=== PATIENT | male | born 1970 | race African-American/Black ===

== ENCOUNTER 2018-07-20 17:59 | Inpatient (IN) | payer OTHER ==
[~2018-07-20] VITALS: Ht 175.3 cm; Wt 101.6 kg
[2018-07-20] MEDS ORDERED: NKM (18:08)
--- NOTE | 2018-07-20 18:39 | Emergency Room Report ---
History of Present Illness General Chief Complaint: Upper Respiratory Illness Source: Patient Present Illness HPI Patient has history of diabetes. Patient states that he has had a cough for last 3-4 days. He has been taking cough medicine from his friend without much improvement. This morning he noticed that his legs were swollen. He has orthopnea and dyspnea on exertion. Denies any chest pain. Denies any fever nausea vomiting diarrhea chills. Symptoms noted to be severe.No other modifying factors. No other associated signs and symptoms. No other complaints were noted. No prior episode. No history of CHF or pulmonary embolism. Allergies: Coded Allergies: No Known Allergies (Unverified , 07/20/18) Patient History Past Medical History: DM, HTN Past Surgical History: none Pertinent Family History: none Social History: Denies: smoking, alcohol use, drug use Reviewed Nursing Documentation: PMH: Agreed; PSxH: Agreed Nursing Documentation-PMH Past Medical History: No History, Except For Hx Hypertension: Yes Hx Diabetes: Yes Review of Systems All Other Systems: negative except mentioned in HPI Physical Exam Vital Signs Date Time Temp Pulse Resp B/P (MAP) Pulse Ox O2 Delivery O2 Flow Rate FiO2 07/20/18 18:03 99.5 118 26 151/101 87 Room Air 99.5 Sp02 EP Interpretation: reviewed, abnormal - low General Appearance: alert, moderate distress Head: normocephalic, atraumatic Eyes: bilateral eye normal inspection ENT: hearing grossly normal, normal voice, pharyngeal erythema Neck: normal inspection, full range of motion, supple, no bony tend Respiratory: normal inspection, lungs clear, normal breath sounds, no wheezing , other - Slight incre resp rate Cardiovascular #1: no edema, tachycardia Gastrointestinal: normal inspection, normal bowel sounds, non tender, soft, no guarding, no hernia Genitourinary: no CVA tenderness Musculoskeletal: back normal, normal range of motion, swelling - bilateral lower extremity Neurologic: normal inspection, alert, responsive, speech normal Psychiatric: normal inspection, judgement/insight normal, anxious Skin: normal inspection, normal color, no rash Procedures Critical Care Time Critical Care Time Patient had a critical medical condition which untreated could potentially result in life or limb threatening injury. Total critical care time excluding procedures was approximately 45 minutes. Medical Decision Making Diagnostic Impression: Primary Impression: CHF (congestive heart failure) Additional Impression: Respiratory distress ER Course Patient presents emergency department today complaining of shortness of breath. Differential diagnoses include acute pneumonia, CHF, acute coronary syndrome, pneumothorax, asthma, COPD flare, just to name a few.Given the severity of the patient's presentation I felt this is a highly complex patient. This patient required extensive workup. Patient laboratory workup shows evidence of CHF with elevated BNP. Chest x-ray shows pulmonary edema. Patient appears be satting okay on oxygen. We'll administer Lasix and nitroglycerin. Patient will be admitted to the [facility] for further treatment. Case was discussed with Dr. Espinosa and Dr. Underwood for admission. Labs Test 07/20/18 18:30 07/20/18 19:15 07/20/18 19:30 White Blood Count 11.8 K/UL (4.8-10.8) Red Blood Count 4.22 M/UL (4.70-6.10) Hemoglobin 13.0 G/DL (14.2-18.0) Hematocrit 37.6 % (42.0-52.0) Mean Corpuscular Volume 89 FL (80-99) Mean Corpuscular Hemoglobin 30.8 PG (27.0-31.0) Mean Corpuscular Hemoglobin Concent 34.7 G/DL (32.0-36.0) Red Cell Distribution Width 10.8 % (11.6-14.8) Platelet Count 299 K/UL (150-450) Mean Platelet Volume 6.9 FL (6.5-10.1) Neutrophils (%) (Auto) 69.3 % (45.0-75.0) Lymphocytes (%) (Auto) 15.3 % (20.0-45.0) Monocytes (%) (Auto) 13.4 % (1.0-10.0) Eosinophils (%) (Auto) 0.6 % (0.0-3.0) Basophils (%) (Auto) 1.4 % (0.0-2.0) Sodium Level 131 MMOL/L (136-145) Potassium Level 4.2 MMOL/L (3.5-5.1) Chloride Level 95 MMOL/L (98-107) Carbon Dioxide Level 27 MMOL/L (21-32) Anion Gap 9 mmol/L (5-15) Blood Urea Nitrogen 16 mg/dL (7-18) Creatinine 1.2 MG/DL (0.55-1.30) Estimat Glomerular Filtration Rate > 60 mL/min (>60) Glucose Level 313 MG/DL (74-106) Calcium Level 9.1 MG/DL (8.5-10.1) Total Bilirubin 0.6 MG/DL (0.2-1.0) Aspartate Amino Transf (AST/SGOT) 30 U/L (15-37) Alanine Aminotransferase (ALT/SGPT) 39 U/L (12-78) Alkaline Phosphatase 120 U/L (46-116) Total Creatine Kinase 626 U/L (26-308) Creatine Kinase MB 0.8 NG/ML (0.0-3.6) Creatine Kinase MB Relative Index 0.1 Troponin I 0.041 ng/mL (0.000-0.056) Pro-B-Type Natriuretic Peptide 1136 pg/mL (0-125) Total Protein 7.1 G/DL (6.4-8.2) Albumin 2.4 G/DL (3.4-5.0) Globulin 4.7 g/dL Albumin/Globulin Ratio 0.5 (1.0-2.7) Lactic Acid Level 1.30 mmol/L (0.4-2.0) Urine Color Yellow Urine Appearance Clear Urine pH 5 (4.5-8.0) Urine Specific [place] 1.015 (1.005-1.035) Urine Protein 4+ (NEGATIVE) Urine Glucose (UA) 4+ (NEGATIVE) Urine Ketones 2+ (NEGATIVE) Urine Blood 3+ (NEGATIVE) Urine Nitrite Negative (NEGATIVE) Urine Bilirubin Negative (NEGATIVE) Urine Urobilinogen 1 MG/DL (0.0-1.0) Urine Leukocyte Esterase Negative (NEGATIVE) Urine RBC 2-4 /HPF (0 - 0) Urine WBC 2-4 /HPF (0 - 0) Urine Squamous Epithelial Cells Occasional /LPF Urine Bacteria Occasional /HPF (NONE) EKG Diagnostic Results Rate: tachycardiac Rhythm: NSR ST Segments: no acute changes Rhythm Strip Diag. Results EP Interpretation: yes Rate: 112 Rhythm: NSR, no PVC's, no ectopy Chest X-Ray Diagnostic Results Chest X-Ray Diagnostic Results : Chest X-Ray Ordered: Yes # of Views/Limited/Complete: 1 View Indication: Shortness of Breath EP Interpretation: Yes Interpretation: other - Pulmonary congestion, cardiomegaly, normal bone, pulmonary edema Impression: Other - Acute CHF Electronically Signed by: Electronically signed by Reese Daniels MD Last Vital Signs Date Time Temp Pulse Resp B/P (MAP) Pulse Ox O2 Delivery O2 Flow Rate FiO2 07/20/18 18:03 99.5 118 26 151/101 87 Room Air 99.5 Status: improved Disposition: ADMITTED INPATIENT Condition: Serious Reese Daniels MD Jul 20, 2018 18:39
[2018-07-20 18:54] LABS: BASOPHILS % (AUTO) 1.4 % (0.0-2.0); EOSINOPHILS % (AUTO) 0.6 % (0.0-3.0); HEMATOCRIT 37.6 % (42.0-52.0); LYMPHOCYTES % (AUTO) 15.3 % (20.0-45.0); MEAN CORPUSCULAR VOLUME 89 FL (80-99); MONOCYTES % (AUTO) 13.4 % (1.0-10.0); NEUTROPHILS % (AUTO) 69.3 % (45.0-75.0); PLATELET COUNT 299 K/UL (150-450); RED BLOOD COUNT 4.22 M/UL (4.70-6.10); RED CELL DISTRIBUTION WIDTH 10.8 % (11.6-14.8); WHITE BLOOD COUNT 11.8 K/UL (4.8-10.8)
[2018-07-20 19:08] LABS: ANION GAP 9 mmol/L (5-15); BLOOD UREA NITROGEN 16 mg/dL (7-18); CALCIUM 9.1 MG/DL (8.5-10.1); CARBON DIOXIDE 27 MMOL/L (21-32); CHLORIDE 95 MMOL/L (98-107); CREATININE 1.2 MG/DL (0.55-1.30); POTASSIUM 4.2 MMOL/L (3.5-5.1); SODIUM 131 MMOL/L (136-145)
[2018-07-20 19:14] VITALS: BP 165/100
[2018-07-20] MEDS ORDERED: Azithromycin 500 MG in NS 275 ML IV SCH (19:15)
[2018-07-20] MEDS ORDERED: cefTRIAXone 1 GM in NS 55 ML IV SCH (19:15)
[2018-07-20 19:23] LABS: ALANINE AMINOTRANSFERASE 39 U/L (12-78); ALBUMIN 2.4 G/DL (3.4-5.0); ALBUMIN/GLOBULIN RATIO 0.5 (1.0-2.7); ALKALINE PHOSPHATASE 120 U/L (46-116); ASPARTATE AMINO TRANSFERASE 30 U/L (15-37); BILIRUBIN,TOTAL 0.6 MG/DL (0.2-1.0); CKMB 0.8 NG/ML (0.0-3.6); CREATINE KINASE 626 U/L (26-308)
[2018-07-20] MEDS ORDERED: Nitroglycerin 2% oint pkt TOPIC ONE (19:45)
[2018-07-20 19:46] LABS: APPEARANCE,URINE CLEAR; BILIRUBIN, URINE NEGATIVE (NEGATIVE); COLOR,URINE YELLOW; GLUCOSE, URINE (UA) 4+ (NEGATIVE); KETONES,URINE 2+ (NEGATIVE); LEUKOCYTE ESTERASE ,URINE NEGATIVE (NEGATIVE); NITRITE,URINE NEGATIVE (NEGATIVE); PH,URINE 5 (4.5-8.0); PROTEIN,URINE 4+ (NEGATIVE); UROBILINOGEN,URINE 1 MG/DL (0.0-1.0)
[2018-07-20 20:45] VITALS: BP 152/106
[2018-07-20 21:10] VITALS: BP 154/99
[2018-07-20] MEDS ORDERED: Albuterol/Ipratropium 3ml neb HHN PRN (21:15)
[2018-07-20] MEDS ORDERED: Miralax 17gm pkt ORAL PRN (21:15)
[2018-07-21] VITALS: BP 134/74
[2018-07-21 04:00] VITALS: BP 126/73
[2018-07-21] MEDS: NovoLOG Insulin Flexpen SUBQ SCH ×4 (06:30→21:06)
[2018-07-21 07:33] LABS: BASOPHILS % (AUTO) 0.9 % (0.0-2.0); EOSINOPHILS % (AUTO) 2.5 % (0.0-3.0); HEMATOCRIT 43.3 % (42.0-52.0); HEMOGLOBIN 14.7 G/DL (14.2-18.0); LYMPHOCYTES % (AUTO) 25.7 % (20.0-45.0); MEAN CORPUSCULAR VOLUME 88 FL (80-99); MONOCYTES % (AUTO) 13.8 % (1.0-10.0); NEUTROPHILS % (AUTO) 57.2 % (45.0-75.0); PLATELET COUNT 350 K/UL (150-450); RED BLOOD COUNT 4.92 M/UL (4.70-6.10); RED CELL DISTRIBUTION WIDTH 10.9 % (11.6-14.8); WHITE BLOOD COUNT 10.6 K/UL (4.8-10.8)
[2018-07-21 07:57] LABS: ALBUMIN 2.8 G/DL (3.4-5.0); ANION GAP 10 mmol/L (5-15); BLOOD UREA NITROGEN 15 mg/dL (7-18); CALCIUM 9.4 MG/DL (8.5-10.1); CARBON DIOXIDE 29 MMOL/L (21-32); CHLORIDE 95 MMOL/L (98-107); CREATININE 1.3 MG/DL (0.55-1.30); PHOSPHORUS 3.7 MG/DL (2.5-4.9); POTASSIUM 3.7 MMOL/L (3.5-5.1); SODIUM 134 MMOL/L (136-145)
[2018-07-21 08:00] VITALS: BP 140/70
[2018-07-21] MEDS ORDERED: Heparin 5000 units/ml inj SUBQ SCH (09:00)
[2018-07-21] MEDS ORDERED: Isovue-300 100ml vial INJ PRN (10:15)
--- NOTE | 2018-07-21 10:18 | Diagnostic Imaging Report ---
Indication: Cough Comparison: None A single view chest radiograph was obtained. Findings: Extensive bilateral airspace opacities demonstrated. Lung volumes are low. Heart size is normal. Pulmonary vascularity is normal. Bones are unremarkable IMPRESSION: Bilateral, extensive airspace opacities. Consider noncardiogenic pulmonary edema versus inflammatory/infectious infiltrates.
--- NOTE | 2018-07-21 10:20 | Diagnostic Imaging Report ---
Indication: Dyspnea Comparison: 07/20/2018 A single view chest radiograph was obtained. Findings: There is no significant change with extensive airspace opacities within both lungs. Pulmonary vascularity is probably normal. Heart size is mildly increased compared to the prior examination but lung volumes remain low. IMPRESSION: Bilateral infiltrates versus non-cardiogenic edema. No change
--- NOTE | 2018-07-21 11:29 | Diagnostic Imaging Report ---
Indication: 47-year-old male presenting with cough 3-4 days without improvement. History of diabetes. Technique: Continuous helical transaxial imaging of the chest was obtained from the thoracic inlet to the upper abdomen after intravenous nonionic contrast administration. Coronal 2-D reformats were also obtained. Automatic Exposure Control was utilized. Total Dose length Product (DLP): 1153.[address] Dose Index Volume (CTDIvol): 27.17 mGy Comparison: none Findings: Central, airspace opacities demonstrated throughout both lung rendon involving upper and lower lobes. These are areas of consolidative lung characterized by air bronchograms and ill-defined groundglass opacities. The degree of disease is moderate to extensive with relative sparing of the lung periphery. Findings are seen in the setting of normal heart size and configuration. Small bilateral pleural effusions are present. No adenopathy appreciated. The esophagus is mildly patulous and slightly dilated. Minimal calcification of aorta demonstrated. There is a mild amount of subcutaneous reticulation within the chest wall. IMPRESSION: Bilateral, central airspace consolidation moderate to severe in degree. Normal heart size. Findings suggestive of acute pulmonary edema. Favor noncardiogenic causes, the differential diagnosis of which is large including neurogenic edema, allergy, drug toxicity, acute asthma, etc. Clinical workup is needed. The CT scanner at [facility] is accredited by the [employer] and the scans are performed using dose optimization techniques as appropriate to a performed exam including Automatic Exposure control.
[2018-07-21 12:00] VITALS: BP 151/100
[2018-07-21] MEDS ORDERED: Promethazine/Codeine 5ml UD ORAL PRN (13:37)
[2018-07-21] MEDS ORDERED: PPD Tuberculin Skin Test 5TU IDERMAL ONE (14:00)
[2018-07-21] MEDS ORDERED: Isovue-300 100ml vial INJ ONE (14:15)
[2018-07-21] MEDS ORDERED: Miralax 17gm pkt ORAL PRN (14:45)
[2018-07-21 16:00] VITALS: BP 129/88
[2018-07-21] MEDS ORDERED: Solu-MEDROL 40mg Inj IVP SCH (18:00)
[2018-07-21] MEDS: Albuterol/Ipratropium 3ml neb HHN PRN (18:54)
[2018-07-21] MEDS: Solu-MEDROL 40mg Inj IVP SCH (19:29)
[2018-07-21 20:00] VITALS: BP 129/85
[2018-07-21] MEDS ORDERED: Azithromycin 500 MG in NS 275 ML IV SCH (20:00)
[2018-07-21] MEDS ORDERED: cefTRIAXone 1 GM in NS 55 ML IV SCH (20:00)
--- NOTE | 2018-07-21 20:18 | History & Physical ---
History and Physical History & Physicial Dictated for Int Med-Dr Espinosa no. [id number]. Wisam Puga MD Jul 21, 2018 20:18
[2018-07-21] MEDS: Promethazine/Codeine 5ml UD ORAL PRN (20:38)
[2018-07-21] MEDS: Heparin 5000 units/ml inj SUBQ SCH (20:47)
[2018-07-21] MEDS: Azithromycin 500 MG in NS 275 ML IV SCH (21:01)
[2018-07-21] MEDS: cefTRIAXone 1 GM in NS 55 ML IV SCH (22:34)
[2018-07-22] VITALS: BP 148/97
[2018-07-22] MEDS: Solu-MEDROL 40mg Inj IVP SCH ×4 (00:01→16:48)
--- NOTE | 2018-07-22 01:15 | History and Physical Report ---
DATE OF ADMISSION: 07/20/2018 CHIEF COMPLAINT: The patient is a 47-year-old -Russian male, presents with complaint of bilateral feet swelling and shortness of breath. HISTORY OF PRESENT ILLNESS: The patient states he had a cold approximately five days ago. The patient had fevers and chills. The patient has had a cough, which is productive of a "orange" sputum. The patient noticed that his feet were swelling yesterday, 07/20/2018. The patient presented to [facility] emergency room. The patient was found to have bilateral opacities in the lungs. The patient is admitted for pneumonia versus acute congestive heart failure. PAST MEDICAL HISTORY: Significant for: 1. Diabetes, type 2. 2. Hypertension. PAST SURGICAL HISTORY: Significant for appendectomy. CURRENT MEDICATIONS: The patient states he is not taking any medications in the past three years. ALLERGIES: No known drug allergies. 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 The patient denies tobacco or alcohol use. REVIEW OF SYSTEMS: CONSTITUTIONAL: The patient denies weight loss or weight gain. The patient denies fevers or chills. HEENT: The patient denies ear or throat pain. The patient denies headache. CARDIOVASCULAR: The patient denies palpitations or chest pain. CHEST: The patient complains of cough as above. The patient denies wheezing. ABDOMEN: The patient denies nausea, vomiting, diarrhea, or constipation. GENITOURINARY: The patient denies dysuria or increased frequency of urination. NEUROMUSCULAR: The patient denies seizures or generalized weakness. The patient complains of bilateral feet swelling as above. PHYSICAL EXAMINATION: VITAL SIGNS: Temperature 98.1, respirations 18, pulse 105, and blood pressure 165/100. GENERAL: The patient is a well-developed and well-nourished -Russian male, in no apparent distress. HEENT: Eyes, pupils are equal and responsive to light and accommodation. Extraocular movements are intact. NECK: Supple without lymphadenopathy. CHEST: Lungs are clear. There are diffuse wheezes in bilateral lung rendon with crackles at bilateral bases. Otherwise, clear to auscultation without wheezes or rales. CARDIOVASCULAR: Regular rhythm and rate. S1 and S2 are normal without murmurs, rubs, or gallops. ABDOMEN: Soft, nontender, and nondistended. Positive bowel sounds. No hepatosplenomegaly. Currently, no rebound or guarding noted. EXTREMITIES: Negative for clubbing, cyanosis, or edema. RECTAL: Refused. GENITAL: Refused. NEUROLOGIC: Cranial nerves II through XII are grossly intact without focal deficits. Motor strength is 5/5 bilaterally. Deep tendon reflexes are 2+ plantar. LABORATORY STUDIES: WBC 11.8, hemoglobin 13.3, hematocrit 37.6, and platelets 209,000. Sodium 131, potassium 4.2, chloride 195, CO2 27, BUN 16, creatinine 1.2, and glucose 313. Chest x-ray revealed bilateral extensive airspace opacities consistent with pulmonary edema. A CT scan of the chest revealed central airspace consolidation with moderate to severe degree. This is consistent with acute pulmonary edema. "Fever noncardiogenic causes." ASSESSMENT: This is a 47-year-old -Russian male. 1. Bilateral pneumonia. 2. Acute pulmonary edema. 3. Diabetes, type 2. 4. Hypertension. TREATMENT: 1. Bilateral pneumonia/acute pulmonary edema. Pulmonary consultation with Dr. Pamela Underwood. The patient has been started empirically on ceftriaxone and azithromycin. We will follow recommendations of Pulmonary. 2. Diabetes, type 2. The patient has been started on NovoLog sliding scale. 3. Hypertension. The patient is currently receiving clonidine p.r.n. for hypertension. Wisam Puga M.D. DR: DELORES JOB#: [id number] CC:
[2018-07-22 04:00] VITALS: BP 120/64
[2018-07-22] MEDS: NovoLOG Insulin Flexpen SUBQ SCH ×6 (06:33→21:09)
[2018-07-22 08:00] VITALS: BP 121/77
[2018-07-22 09:02] LABS: BASOPHILS % (AUTO) 0.3 % (0.0-2.0); HEMATOCRIT 39.7 % (42.0-52.0); HEMOGLOBIN 13.2 G/DL (14.2-18.0); MEAN CORPUSCULAR VOLUME 87 FL (80-99); NEUTROPHILS % (AUTO) 83.7 % (45.0-75.0); PLATELET COUNT 396 K/UL (150-450); RED BLOOD COUNT 4.56 M/UL (4.70-6.10); WHITE BLOOD COUNT 8.4 K/UL (4.8-10.8)
[2018-07-22 09:08] LABS: ANION GAP 7 mmol/L (5-15); BLOOD UREA NITROGEN 21 mg/dL (7-18); CALCIUM 9.1 MG/DL (8.5-10.1); CARBON DIOXIDE 28 MMOL/L (21-32); CHLORIDE 98 MMOL/L (98-107); CREATININE 1.2 MG/DL (0.55-1.30); POTASSIUM 4.7 MMOL/L (3.5-5.1); SODIUM 133 MMOL/L (136-145)
[2018-07-22] MEDS: Heparin 5000 units/ml inj SUBQ SCH ×2 (09:31→21:08)
--- NOTE | 2018-07-22 11:15 | Consultation ---
History of Present Illness General Date patient seen: Jul 21, 2018 Chief Complaint: Upper Respiratory Illness Present Illness HPI 47 year old male with history of diabetes presented to ER with CC of cough for last 3-4 days. He traveled recently to [facility], where he went hiking with his friends. One of his coworkers has had the same symptoms as well. His CXR showed extensive patchy infiltrate whis was misread by ER physician as pulmonary edema and he received some dose of Lasix. He was admitted to [facility] with presumptive Dx of CHF. Denies any chest pain. Denies any fever nausea vomiting diarrhea chills. Allergies: Coded Allergies: No Known Allergies (Unverified , 07/20/18) Medication History Scheduled No Known Medications* (NKM - No Known Medications*), 0 ., (Reported) Patient History Healthcare decision maker N Resuscitation status Full Code Advanced Directive on File Review of Systems Respiratory: Reports: cough, shortness of breath Physical Exam General Appearance: WD/WN Lines, tubes and drains: peripheral HEENT: normocephalic Neck: non-tender Respiratory/Chest: chest wall non-tender, lungs clear Breasts: no masses Cardiovascular/Chest: normal rate Abdomen: normal bowel sounds Last 24 Hour Vital Signs Date Time Temp Pulse Resp B/P (MAP) Pulse Ox O2 Delivery O2 Flow Rate FiO2 07/22/18 09:00 Nasal Cannula 2.0 07/22/18 08:00 97.4 86 18 121/77 (92) 98 97.4 07/22/18 04:00 91 07/22/18 04:00 97.5 86 23 120/64 (82) 98 97.5 07/22/18 00:00 97.9 85 20 148/97 (114) 90 97.9 07/22/18 00:00 86 07/21/18 21:00 Nasal Cannula 2.0 07/21/18 20:43 105 07/21/18 20:00 97.0 89 20 129/85 (100) 100 97.0 07/21/18 19:06 115 18 96 Venturi Mask 10.0 45 07/21/18 19:00 113 18 Venturi Mask 10.0 45 07/21/18 19:00 Venturi Mask 10.0 45 07/21/18 19:00 94 Venturi Mask 10.0 45 07/21/18 18:59 113 18 94 Venturi Mask 10.0 45 07/21/18 16:00 96.4 102 21 129/88 (102) 94 96.4 07/21/18 16:00 Nasal Cannula 2.0 07/21/18 12:00 Nasal Cannula 2.0 07/21/18 12:00 98.2 103 22 151/100 (117) 95 98.2 07/21/18 12:00 45 07/21/18 12:00 100 Intake and Output 07/21/18 07/22/18 19:00 07:00 Intake Total 1630 ml 570 ml Output Total 1300 ml 500 ml Balance 330 ml 70 ml Intake Oral 1630 ml 240 ml IV Total 330 ml Output Urine Total 1300 ml 500 ml # Voids 1 4 # Bowel Movements 2 2 Laboratory Tests Test 07/22/18 07:50 07/22/18 10:25 White Blood Count 8.4 K/UL (4.8-10.8) Red Blood Count 4.56 M/UL (4.70-6.10) L Hemoglobin 13.2 G/DL (14.2-18.0) L Hematocrit 39.7 % (42.0-52.0) L Mean Corpuscular Volume 87 FL (80-99) Mean Corpuscular Hemoglobin 29.0 PG (27.0-31.0) Mean Corpuscular Hemoglobin Concent 33.3 G/DL (32.0-36.0) Red Cell Distribution Width 11.0 % (11.6-14.8) L Platelet Count 396 K/UL (150-450) Mean Platelet Volume 6.7 FL (6.5-10.1) Neutrophils (%) (Auto) 83.7 % (45.0-75.0) H Lymphocytes (%) (Auto) 12.0 % (20.0-45.0) L Monocytes (%) (Auto) 4.0 % (1.0-10.0) Eosinophils (%) (Auto) 0.0 % (0.0-3.0) Basophils (%) (Auto) 0.3 % (0.0-2.0) Sodium Level 133 MMOL/L (136-145) L Potassium Level 4.7 MMOL/L (3.5-5.1) Chloride Level 98 MMOL/L (98-107) Carbon Dioxide Level 28 MMOL/L (21-32) Anion Gap 7 mmol/L (5-15) Blood Urea Nitrogen 21 mg/dL (7-18) H Creatinine 1.2 MG/DL (0.55-1.30) Estimat Glomerular Filtration Rate > 60 mL/min (>60) Glucose Level 336 MG/DL (74-106) H Calcium Level 9.1 MG/DL (8.5-10.1) Carcinoembryonic Antigen Pending Blastomyces Ab Immunodiffusion Pending Histoplasma Mycelial Antibody Pending Histoplasma Antibody w Mycelial Ag Pending Histoplasma Antibody with Yeast Ag Pending TB Test (T-Spot) Pending TB Test Nil Control (T-Spot) Pending TB Test Panel A (T-Spot) Pending TB Test Panel B (T-Spot) Pending TB Test Positive Control (T-Spot) Pending Height (Feet): 5 Height (Inches): 9.00 Weight (Pounds): 237 Medications Current Medications Medications (Trade) Dose Ordered Sig/Josephine Route PRN Reason Start Time Stop Time Status Last Admin Dose Admin Acetaminophen (Tylenol) 650 mg Q4H PRN ORAL Fever/Headache/Mild Pain 07/21/18 19:00 08/19/18 18:59 07/21/18 19:31 Albuterol/ Ipratropium (Albuterol/ Ipratropium) 3 ml Q4H PRN HHN Shortness of Breath 07/21/18 14:45 07/25/18 14:44 07/21/18 18:54 Azithromycin 500 mg/Sodium Chloride 275 ml @ 275 mls/hr Q24H IV 07/21/18 20:00 07/28/18 19:59 07/21/18 21:01 Ceftriaxone Sodium 1 gm/ Sodium Chloride 55 ml @ 110 mls/hr QHS IV 07/21/18 21:00 07/28/18 20:59 07/21/18 22:34 Dextrose (Dextrose 50%) 25 ml Q30M PRN IV Hypoglycemia 07/21/18 14:45 08/19/18 22:44 Dextrose (Dextrose 50%) 50 ml Q30M PRN IV Hypoglycemia 07/21/18 14:45 08/19/18 22:44 Heparin Sodium (Porcine) (Heparin 5000 units/ml) 5,000 units EVERY 12 HOURS SUBQ 07/21/18 21:00 08/20/18 08:59 07/22/18 09:31 Insulin Aspart (NovoLOG) BEFORE MEALS AND HS SUBQ 07/21/18 16:30 08/20/18 06:29 07/22/18 06:33 Methylprednisolone Sodium Succinate (Solu-MEDROL) 60 mg EVERY 6 HOURS IVP 07/21/18 18:00 08/20/18 17:59 07/22/18 06:23 Ondansetron HCl (Zofran) 4 mg Q6H PRN IVP Nausea & Vomiting 07/21/18 15:15 08/19/18 21:14 Polyethylene Glycol (Miralax) 17 gm DAILYPRN PRN ORAL Constipation 07/21/18 14:45 08/19/18 14:44 Promethazine HCl/ Codeine (Phenergan with Codeine) 5 ml Q4H PRN ORAL For Cough 07/21/18 14:45 08/20/18 14:44 07/21/18 20:38 Temazepam (Restoril) 15 mg HSPRN PRN ORAL Insomnia 07/21/18 20:00 07/27/18 19:59 Assessment/Plan Problem List: (1) Bilateral pneumonia ICD Codes: J18.9 - Pneumonia, unspecified organism SNOMED: 203210605 (2) Respiratory distress ICD Codes: R06.03 - Acute respiratory distress SNOMED: 270931050 Assessment/Plan pt has extensive lung disease, mostly seems acute. will get sputum induction for [employer] and fungal, and serology as well ( chlamydia, etc) respiratory treatment Zitromax to cover atypical organism ID to see HIV testing if pts symptoms doesn't improve with abx he will need FOB and later OLB. Pamela Underwood MD Jul 22, 2018 11:15
--- NOTE | 2018-07-22 11:17 | Pulmonology Progress Note ---
Assessment/Plan Problems: (1) Bilateral pneumonia (2) Respiratory distress Assessment/Plan no change in symptoms awaiting sputum results continue Zithromx for atypical pneumonia PPD skin testing Subjective ROS Limited/Unobtainable: No Constitutional: Reports: no symptoms HEENT: Repors: other Allergies: Coded Allergies: No Known Allergies (Unverified , 07/20/18) Objective Last 24 Hour Vital Signs Date Time Temp Pulse Resp B/P (MAP) Pulse Ox O2 Delivery O2 Flow Rate FiO2 07/22/18 09:00 Nasal Cannula 2.0 07/22/18 08:00 97.4 86 18 121/77 (92) 98 97.4 07/22/18 04:00 91 07/22/18 04:00 97.5 86 23 120/64 (82) 98 97.5 07/22/18 00:00 97.9 85 20 148/97 (114) 90 97.9 07/22/18 00:00 86 07/21/18 21:00 Nasal Cannula 2.0 07/21/18 20:43 105 07/21/18 20:00 97.0 89 20 129/85 (100) 100 97.0 07/21/18 19:06 115 18 96 Venturi Mask 10.0 45 07/21/18 19:00 113 18 Venturi Mask 10.0 45 07/21/18 19:00 Venturi Mask 10.0 45 07/21/18 19:00 94 Venturi Mask 10.0 45 07/21/18 18:59 113 18 94 Venturi Mask 10.0 45 07/21/18 16:00 96.4 102 21 129/88 (102) 94 96.4 07/21/18 16:00 Nasal Cannula 2.0 07/21/18 12:00 Nasal Cannula 2.0 07/21/18 12:00 98.2 103 22 151/100 (117) 95 98.2 07/21/18 12:00 45 07/21/18 12:00 100 Intake and Output 07/21/18 07/22/18 19:00 07:00 Intake Total 1630 ml 570 ml Output Total 1300 ml 500 ml Balance 330 ml 70 ml Intake Oral 1630 ml 240 ml IV Total 330 ml Output Urine Total 1300 ml 500 ml # Voids 1 4 # Bowel Movements 2 2 General Appearance: WD/WN HEENT: normocephalic, atraumatic Respiratory/Chest: chest wall non-tender, lungs clear Cardiovascular: normal peripheral pulses, normal rate Abdomen: normal bowel sounds, soft, non tender Skin: no rash Microbiology Date/Time Source Procedure Growth Status 07/20/18 19:25 Blood Blood Culture - Preliminary NO GROWTH AFTER 24 HOURS Resulted 07/20/18 19:15 Blood Blood Culture - Preliminary NO GROWTH AFTER 24 HOURS Resulted Laboratory Tests 07/22/18 07:50: White Blood Count 8.4, Red Blood Count 4.56L, Hemoglobin 13.2L, Hematocrit 39.7L , Mean Corpuscular Volume 87, Mean Corpuscular Hemoglobin 29.0, Mean Corpuscular Hemoglobin Concent 33.3, Red Cell Distribution Width 11.0L, Platelet Count 396, Mean Platelet Volume 6.7, Neutrophils (%) (Auto) 83.7H, Lymphocytes (%) (Auto) 12.0L, Monocytes (%) (Auto) 4.0, Eosinophils (%) (Auto) 0.0, Basophils (%) (Auto) 0.3, Sodium Level 133L, Potassium Level 4.7, Chloride Level 98, Carbon Dioxide Level 28, Anion Gap 7, Blood Urea Nitrogen 21H, Creatinine 1.2, Estimat Glomerular Filtration Rate > 60, Glucose Level 336H, Calcium Level 9.1, Carcinoembryonic Antigen [Pending], Blastomyces Ab Immunodiffusion [Pending], Histoplasma Mycelial Antibody [Pending], Histoplasma Antibody w Mycelial Ag [Pending], Histoplasma Antibody with Yeast Ag [Pending] 07/22/18 10:25: TB Test (T-Spot) [Pending], TB Test Nil Control (T-Spot) [Pending], TB Test Panel A (T-Spot) [Pending], TB Test Panel B (T-Spot) [Pending], TB Test Positive Control (T-Spot) [Pending] Current Medications Medications (Trade) Dose Ordered Sig/Josephine Route PRN Reason Start Time Stop Time Status Last Admin Dose Admin Acetaminophen (Tylenol) 650 mg Q4H PRN ORAL Fever/Headache/Mild Pain 07/21/18 19:00 08/19/18 18:59 07/21/18 19:31 Albuterol/ Ipratropium (Albuterol/ Ipratropium) 3 ml Q4H PRN HHN Shortness of Breath 07/21/18 14:45 07/25/18 14:44 07/21/18 18:54 Azithromycin 500 mg/Sodium Chloride 275 ml @ 275 mls/hr Q24H IV 07/21/18 20:00 07/28/18 19:59 07/21/18 21:01 Ceftriaxone Sodium 1 gm/ Sodium Chloride 55 ml @ 110 mls/hr QHS IV 07/21/18 21:00 07/28/18 20:59 07/21/18 22:34 Dextrose (Dextrose 50%) 25 ml Q30M PRN IV Hypoglycemia 07/21/18 14:45 08/19/18 22:44 Dextrose (Dextrose 50%) 50 ml Q30M PRN IV Hypoglycemia 07/21/18 14:45 08/19/18 22:44 Heparin Sodium (Porcine) (Heparin 5000 units/ml) 5,000 units EVERY 12 HOURS SUBQ 07/21/18 21:00 08/20/18 08:59 07/22/18 09:31 Insulin Aspart (NovoLOG) BEFORE MEALS AND HS SUBQ 07/21/18 16:30 08/20/18 06:29 07/22/18 06:33 Methylprednisolone Sodium Succinate (Solu-MEDROL) 60 mg EVERY 6 HOURS IVP 07/21/18 18:00 08/20/18 17:59 07/22/18 06:23 Ondansetron HCl (Zofran) 4 mg Q6H PRN IVP Nausea & Vomiting 07/21/18 15:15 08/19/18 21:14 Polyethylene Glycol (Miralax) 17 gm DAILYPRN PRN ORAL Constipation 07/21/18 14:45 08/19/18 14:44 Promethazine HCl/ Codeine (Phenergan with Codeine) 5 ml Q4H PRN ORAL For Cough 07/21/18 14:45 08/20/18 14:44 07/21/18 20:38 Temazepam (Restoril) 15 mg HSPRN PRN ORAL Insomnia 07/21/18 20:00 07/27/18 19:59 Pamela Underwood MD Jul 22, 2018 11:16
[2018-07-22 12:00] VITALS: BP 126/78
--- NOTE | 2018-07-22 13:47 | Consultation ---
Consult Note Consult Note ID # [id number] Jama Paul MD Jul 22, 2018 13:47
--- NOTE | 2018-07-22 15:32 | Cardiology Report ---
APPROVED REPORT EKG Measurement Heart [id number] ME [id number] [id number] Sinus tachycardia Possible Left atrial enlargement Possible septal [place], age undet Borderline ECG
--- NOTE | 2018-07-22 15:38 | Internal Med Progress Note ---
Subjective Physician Name Oliverio Espinosa Attending Physician Oliverio Espinosa MD Current Medications Medications (Trade) Dose Ordered Sig/Josephine Route PRN Reason Start Time Stop Time Status Last Admin Dose Admin Acetaminophen (Tylenol) 650 mg Q4H PRN ORAL Fever/Headache/Mild Pain 07/21/18 19:00 08/19/18 18:59 07/21/18 19:31 Albuterol/ Ipratropium (Albuterol/ Ipratropium) 3 ml Q4H PRN HHN Shortness of Breath 07/21/18 14:45 07/25/18 14:44 07/21/18 18:54 Azithromycin 500 mg/Sodium Chloride 275 ml @ 275 mls/hr Q24H IV 07/21/18 20:00 07/28/18 19:59 07/21/18 21:01 Ceftriaxone Sodium 1 gm/ Sodium Chloride 55 ml @ 110 mls/hr QHS IV 07/21/18 21:00 07/28/18 20:59 07/21/18 22:34 Dextrose (Dextrose 50%) 25 ml Q30M PRN IV Hypoglycemia 07/21/18 14:45 08/19/18 22:44 Dextrose (Dextrose 50%) 50 ml Q30M PRN IV Hypoglycemia 07/21/18 14:45 08/19/18 22:44 Heparin Sodium (Porcine) (Heparin 5000 units/ml) 5,000 units EVERY 12 HOURS SUBQ 07/21/18 21:00 08/20/18 08:59 07/22/18 09:31 Insulin Aspart (NovoLOG) BEFORE MEALS AND HS SUBQ 07/21/18 16:30 08/20/18 06:29 07/22/18 11:33 Methylprednisolone Sodium Succinate (Solu-MEDROL) 60 mg EVERY 6 HOURS IVP 07/21/18 18:00 08/20/18 17:59 07/22/18 11:12 Ondansetron HCl (Zofran) 4 mg Q6H PRN IVP Nausea & Vomiting 07/21/18 15:15 08/19/18 21:14 Polyethylene Glycol (Miralax) 17 gm DAILYPRN PRN ORAL Constipation 07/21/18 14:45 08/19/18 14:44 Promethazine HCl/ Codeine (Phenergan with Codeine) 5 ml Q4H PRN ORAL For Cough 07/21/18 14:45 11/3/18 14:44 07/21/18 20:38 Temazepam (Restoril) 15 mg HSPRN PRN ORAL Insomnia 07/21/18 20:00 07/27/18 19:59 Allergies: Coded Allergies: No Known Allergies (Unverified , 07/20/18) Subjective in respiratory isolation room, No SOB or chest pain, Less leg edema Objective Last Vital Signs Date Time Temp Pulse Resp B/P (MAP) Pulse Ox O2 Delivery O2 Flow Rate FiO2 07/22/18 12:00 98.2 82 18 126/78 (94) 95 98.2 07/22/18 09:00 Nasal Cannula 2.0 07/21/18 19:06 45 Laboratory Tests Test 07/22/18 07:50 07/22/18 10:25 White Blood Count 8.4 K/UL (4.8-10.8) Red Blood Count 4.56 M/UL (4.70-6.10) L Hemoglobin 13.2 G/DL (14.2-18.0) L Hematocrit 39.7 % (42.0-52.0) L Mean Corpuscular Volume 87 FL (80-99) Mean Corpuscular Hemoglobin 29.0 PG (27.0-31.0) Mean Corpuscular Hemoglobin Concent 33.3 G/DL (32.0-36.0) Red Cell Distribution Width 11.0 % (11.6-14.8) L Platelet Count 396 K/UL (150-450) Mean Platelet Volume 6.7 FL (6.5-10.1) Neutrophils (%) (Auto) 83.7 % (45.0-75.0) H Lymphocytes (%) (Auto) 12.0 % (20.0-45.0) L Monocytes (%) (Auto) 4.0 % (1.0-10.0) Eosinophils (%) (Auto) 0.0 % (0.0-3.0) Basophils (%) (Auto) 0.3 % (0.0-2.0) Sodium Level 133 MMOL/L (136-145) L Potassium Level 4.7 MMOL/L (3.5-5.1) Chloride Level 98 MMOL/L (98-107) Carbon Dioxide Level 28 MMOL/L (21-32) Anion Gap 7 mmol/L (5-15) Blood Urea Nitrogen 21 mg/dL (7-18) H Creatinine 1.2 MG/DL (0.55-1.30) Estimat Glomerular Filtration Rate > 60 mL/min (>60) Glucose Level 336 MG/DL (74-106) H Calcium Level 9.1 MG/DL (8.5-10.1) Carcinoembryonic Antigen Pending Blastomyces Ab Immunodiffusion Pending Histoplasma Mycelial Antibody Pending Histoplasma Antibody w Mycelial Ag Pending Histoplasma Antibody with Yeast Ag Pending TB Test (T-Spot) Pending TB Test Nil Control (T-Spot) Pending TB Test Panel A (T-Spot) Pending TB Test Panel B (T-Spot) Pending TB Test Positive Control (T-Spot) Pending Microbiology Date/Time Source Procedure Growth Status 07/20/18 19:25 Blood Blood Culture - Preliminary NO GROWTH AFTER 24 HOURS Resulted 07/20/18 19:15 Blood Blood Culture - Preliminary NO GROWTH AFTER 24 HOURS Resulted 07/21/18 13:00 Sputum AFB Specimen Processing Tissue - Final Resulted 07/21/18 13:00 Sputum Acid Fast Bacilli Smear - Final Resulted 07/21/18 13:00 Sputum Acid Fast Bacilli Culture Pending Resulted Intake and Output 07/21/18 07/22/18 19:00 07:00 Intake Total 1630 ml 570 ml Output Total 1300 ml 500 ml Balance 330 ml 70 ml Intake Oral 1630 ml 240 ml IV Total 330 ml Output Urine Total 1300 ml 500 ml # Voids 1 4 # Bowel Movements 2 2 Objective General: No acute distress, awake and alert HEENT: NCAT, sclera anicteric, PERRL, EOMI. Neck: Supple, no significant jugular venous distention, Lungs: Good inspiratory effort,clear to auscultation bilaterally, no Wheeze or Rales. Heart: Regular rate and rhythm, normal S1/S2, no murmurs. Abdomen: soft, nontender, nondistended. Normoactive bowel sounds. / Rectal: Refused and deferred. Extremities: No Cyanosis , clubbing, Trace Leg edema. Neuro: A&O x 3, Able to move all extremities Skin: warm, no rashes or lesions Psych: Normal mood and affect Assessment/Plan Assessment/Plan 1. Bilateral pneumonia. 2. Acute pulmonary edema. 3. Diabetes, type 2. 4. Hypertension. 5. Acute respiratory distress. TREATMENT: 1. Pulmonary consultation with Dr. Pamela Underwood. 2. Abx: ceftriaxone and azithromycin. 3. Monitor labs and cultures in respiratory isolation Oliverio Espinosa MD Jul 22, 2018 15:38
--- NOTE | 2018-07-22 18:00 | Consultation ---
DATE OF CONSULTATION: 07/22/2018 INFECTIOUS DISEASE CONSULTATION CONSULTING PHYSICIAN: Jama Paul M.D. REFERRING PHYSICIAN: 1. Pamela Underwood M.D. 2. Oliverio Espinosa M.D. REASON FOR CONSULTATION: Evaluation of the patient for pneumonia, antibiotic management. HISTORY OF PRESENT ILLNESS: The patient is a 47-year-old male with multiple medical problems. 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 The patient has cough x1 week. Also, the patient has some rhinorrhea and sore throat. The patient has developed cough followed with shortness of breath. His friend has had similar symptoms about a month ago and was hospitalized at one point. The patient has some productive cough that has improved. Infectious Disease consultation has been requested for further evaluation of the patient and antibiotic management as the patient's workup was suggestive of pneumonia. PAST MEDICAL HISTORY: 1. Diabetes. 2. Hypertension. SURGERIES: History of appendectomy. ALLERGIES: No known drug allergies. SOCIAL HISTORY: He smokes weed. No history of tobacco or alcohol abuse. FAMILY HISTORY: Not contributing. MEDICATIONS: The patient is on Zithromax and Rocephin. PHYSICAL EXAMINATION: VITAL SIGNS: Temperature 101.1, pulse 86, respiratory rate 18, and blood pressure 148/97. HEENT: No pale conjunctivae. No icterus. NECK: No lymphadenopathy. CHEST: Coarse breathing sounds. HEART: S1 and S2. ABDOMEN: Soft, obese, nontender. EXTREMITIES: No cyanosis at this time. NEUROLOGIC: Awake and alert. LABORATORY AND DIAGNOSTIC DATA: White blood cells 8.4, hemoglobin 13, and platelets 396,000. UA unremarkable. BUN 21 and creatinine 1.2. Alkaline phosphatase 120. AST and ALT are unremarkable. Cultures, blood culture is pending. Sputum AFB x1 negative. CT of the chest showed bilateral central airspace consolidation of [id number] degree. Leg Doppler, no evidence of DVT. ASSESSMENT: 1. Pneumonia (community-acquired versus pertussis, fungal and tuberculosis less likely). 2. Fever. 3. Diabetes. 4. Hypertension. PLAN: 1. We will continue the patient on Zithromax and Rocephin, day #2. 2. Monitor CBC. 3. Monitor BMP. 4. Monitor cultures (blood, sputum). 5. Sputum for AFB x3 was ordered. 6. Fungal serology. 7. Order coccidiomycosis, blastomycosis, and histoplasma urine antigen. 8. Cryptococcus antigen. 9. Pertussis PCR from nasopharyngeal. 10. Pertussis serology. 11. We will monitor chest x-ray. 12. We will monitor the patient's clinical course. Based on those, we will do further recommendation. Thank you, Dr. Underwood, for allowing me to participate in the care of this patient I will follow the patient with you during this hospitalization. Jama Paul M.D. DR: Opal JOB#: [id number] CC:
[2018-07-22 20:00] VITALS: BP 126/78
[2018-07-22] MEDS: cefTRIAXone 1 GM in NS 55 ML IV SCH (20:43)
[2018-07-22] MEDS: Azithromycin 500 MG in NS 275 ML IV SCH (20:43)
[2018-07-22] MEDS: Promethazine/Codeine 5ml UD ORAL PRN (21:15)
[2018-07-23] VITALS: BP 153/84
[2018-07-23 04:00] VITALS: BP 132/86
[2018-07-23] MEDS: NovoLOG Insulin Flexpen SUBQ SCH ×4 (06:29→21:33)
[2018-07-23 08:15] VITALS: BP 145/104
[2018-07-23] MEDS: Solu-MEDROL 125mg Inj IVP SCH ×3 (08:38→21:25)
[2018-07-23] MEDS: Heparin 5000 units/ml inj SUBQ SCH ×2 (08:40→21:00)
--- NOTE | 2018-07-23 11:15 | Pulmonology Progress Note ---
Assessment/Plan Problems: (1) Bilateral pneumonia (2) Respiratory distress Assessment/Plan feeling better, less cough awaiting sputum results continue Zithromx for atypical pneumonia taper steroids sputum pending HIV was negative cxr in a few days. PPD skin testing Subjective ROS Limited/Unobtainable: No Constitutional: Reports: no symptoms HEENT: Repors: no symptoms Respiratory: Reports: no symptoms Allergies: Coded Allergies: No Known Allergies (Unverified , 07/20/18) Objective Last 24 Hour Vital Signs Date Time Temp Pulse Resp B/P (MAP) Pulse Ox O2 Delivery O2 Flow Rate FiO2 07/23/18 09:25 Nasal Cannula 2.0 07/23/18 08:55 92 20 Room Air 07/23/18 08:55 98 Room Air 07/23/18 08:55 Room Air 07/23/18 08:15 97.3 84 18 145/104 (118) 95 97.3 07/23/18 04:00 97.7 82 20 132/86 (101) 98 97.7 07/23/18 00:00 97.8 80 20 153/84 (107) 99 97.8 07/22/18 21:00 Room Air 07/22/18 20:30 Room Air 07/22/18 20:30 99 Room Air 07/22/18 20:01 90 20 Room Air 07/22/18 20:00 100.4 73 21 126/78 (94) 96 100.4 07/22/18 12:00 98.2 82 18 126/78 (94) 95 98.2 07/22/18 12:00 90 Intake and Output 07/22/18 07/23/18 19:00 07:00 Intake Total 1800 ml Balance 1800 ml Intake Oral 1800 ml # Voids 8 2 # Bowel Movements 2 1 General Appearance: WD/WN HEENT: normocephalic, anicteric Respiratory/Chest: chest wall non-tender, lungs clear Cardiovascular: normal peripheral pulses, normal rate Abdomen: normal bowel sounds, soft, non tender, no organomegaly Extremities: no clubbing 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 normal Microbiology Date/Time Source Procedure Growth Status 07/20/18 19:25 Blood Blood Culture - Preliminary NO GROWTH AFTER 48 HOURS Resulted 07/20/18 19:15 Blood Blood Culture - Preliminary NO GROWTH AFTER 48 HOURS Resulted 07/21/18 13:00 Sputum AFB Specimen Processing Tissue - Final Resulted 07/21/18 13:00 Sputum Acid Fast Bacilli Smear - Final Resulted 07/21/18 13:00 Sputum Acid Fast Bacilli Culture Pending Resulted Laboratory Tests 07/22/18 21:00: Troponin I 0.017 Current Medications Medications (Trade) Dose Ordered Sig/Josephine Route PRN Reason Start Time Stop Time Status Last Admin Dose Admin Acetaminophen (Tylenol) 650 mg Q4H PRN ORAL Fever/Headache/Mild Pain 07/21/18 19:00 08/19/18 18:59 07/21/18 19:31 Albuterol/ Ipratropium (Albuterol/ Ipratropium) 3 ml Q4H PRN HHN Shortness of Breath 07/21/18 14:45 07/25/18 14:44 07/21/18 18:54 Azithromycin 500 mg/Sodium Chloride 275 ml @ 275 mls/hr Q24H IV 07/21/18 20:00 07/28/18 19:59 07/22/18 20:43 Ceftriaxone Sodium 1 gm/ Sodium Chloride 55 ml @ 110 mls/hr QHS IV 07/21/18 21:00 07/28/18 20:59 07/22/18 20:43 Dextrose (Dextrose 50%) 25 ml Q30M PRN IV Hypoglycemia 07/21/18 14:45 08/19/18 22:44 Dextrose (Dextrose 50%) 50 ml Q30M PRN IV Hypoglycemia 07/21/18 14:45 08/19/18 22:44 Heparin Sodium (Porcine) (Heparin 5000 units/ml) 5,000 units EVERY 12 HOURS SUBQ 07/21/18 21:00 08/20/18 08:59 07/23/18 08:40 Insulin Aspart (NovoLOG) BEFORE MEALS AND HS SUBQ 07/21/18 16:30 08/20/18 06:29 07/23/18 06:29 Methylprednisolone Sodium Succinate (Solu-MEDROL) 60 mg Q8H IVP 07/23/18 00:00 08/22/18 00:00 07/23/18 08:38 Ondansetron HCl (Zofran) 4 mg Q6H PRN IVP Nausea & Vomiting 07/21/18 15:15 08/19/18 21:14 Polyethylene Glycol (Miralax) 17 gm DAILYPRN PRN ORAL Constipation 07/21/18 14:45 08/19/18 14:44 Promethazine HCl/ Codeine (Phenergan with Codeine) 5 ml Q4H PRN ORAL For Cough 07/21/18 14:45 08/20/18 14:44 07/22/18 21:15 Temazepam (Restoril) 15 mg HSPRN PRN ORAL Insomnia 07/21/18 20:00 07/27/18 19:59 07/22/18 21:07 Pamela Underwood MD Jul 23, 2018 11:14
[2018-07-23 11:48] VITALS: BP 142/99
[2018-07-23] MEDS ORDERED: Tubing IV Secondary IV ONE (15:07)
[2018-07-23] MEDS ORDERED: NS 275ml ONE (15:07)
[2018-07-23 16:00] VITALS: BP 149/102
--- NOTE | 2018-07-23 17:27 | Internal Med Progress Note ---
Subjective Date of Service: Jul 23, 2018 Physician Name Wisam Puga Attending Physician Oliverio Espinosa MD Current Medications Medications (Trade) Dose Ordered Sig/Josephine Route PRN Reason Start Time Stop Time Status Last Admin Dose Admin Acetaminophen (Tylenol) 650 mg Q4H PRN ORAL Fever/Headache/Mild Pain 07/21/18 19:00 08/19/18 18:59 07/21/18 19:31 Albuterol/ Ipratropium (Albuterol/ Ipratropium) 3 ml Q4H PRN HHN Shortness of Breath 07/21/18 14:45 07/25/18 14:44 07/21/18 18:54 Azithromycin 500 mg/Sodium Chloride 275 ml @ 275 mls/hr Q24H IV 07/21/18 20:00 07/28/18 19:59 07/22/18 20:43 Ceftriaxone Sodium 1 gm/ Sodium Chloride 55 ml @ 110 mls/hr QHS IV 07/21/18 21:00 07/28/18 20:59 07/22/18 20:43 Dextrose (Dextrose 50%) 25 ml Q30M PRN IV Hypoglycemia 07/21/18 14:45 08/19/18 22:44 Dextrose (Dextrose 50%) 50 ml Q30M PRN IV Hypoglycemia 07/21/18 14:45 08/19/18 22:44 Heparin Sodium (Porcine) (Heparin 5000 units/ml) 5,000 units EVERY 12 HOURS SUBQ 07/21/18 21:00 08/20/18 08:59 07/23/18 08:40 Insulin Aspart (NovoLOG) BEFORE MEALS AND HS SUBQ 07/21/18 16:30 08/20/18 06:29 07/23/18 16:58 Methylprednisolone Sodium Succinate (Solu-MEDROL) 60 mg EVERY 12 HOURS IVP 07/23/18 21:00 08/22/18 00:00 Ondansetron HCl (Zofran) 4 mg Q6H PRN IVP Nausea & Vomiting 07/21/18 15:15 08/19/18 21:14 Polyethylene Glycol (Miralax) 17 gm DAILYPRN PRN ORAL Constipation 07/21/18 14:45 08/19/18 14:44 Promethazine HCl/ Codeine (Phenergan with Codeine) 5 ml Q4H PRN ORAL For Cough 07/21/18 14:45 08/20/18 14:44 07/22/18 21:15 Temazepam (Restoril) 15 mg HSPRN PRN ORAL Insomnia 07/21/18 20:00 07/27/18 19:59 07/22/18 21:07 Allergies: Coded Allergies: No Known Allergies (Unverified , 07/20/18) ROS Limited/Unobtainable: No Constitutional: Reports: no symptoms HEENT: Reports: no symptoms Cardiovascular: Reports: no symptoms Respiratory: Reports: shortness of breath Gastrointestinal/Abdominal: Reports: no symptoms Genitourinary: Reports: no symptoms Neurologic/Psychiatric: Reports: no symptoms Subjective 47 YO M admitted with shortness of breath. Now pneumonia. Cover for Int Med- Dr Espinosa Objective Last Vital Signs Date Time Temp Pulse Resp B/P (MAP) Pulse Ox O2 Delivery O2 Flow Rate FiO2 07/23/18 16:00 97.7 83 18 149/102 (118) 94 97.7 07/23/18 09:25 Nasal Cannula 2.0 07/22/18 08:20 28 Laboratory Tests Test 07/22/18 21:00 Troponin I 0.017 ng/mL (0.000-0.056) Microbiology Date/Time Source Procedure Growth Status 07/20/18 19:25 Blood Blood Culture - Preliminary NO GROWTH AFTER 48 HOURS Resulted 07/20/18 19:15 Blood Blood Culture - Preliminary NO GROWTH AFTER 48 HOURS Resulted 07/22/18 06:30 Sputum Gram Stain - Final Resulted 07/22/18 06:30 Sputum Sputum Culture Pending Resulted 07/21/18 13:00 Sputum AFB Specimen Processing Tissue - Final Resulted 07/21/18 13:00 Sputum Acid Fast Bacilli Smear - Final Resulted 07/21/18 13:00 Sputum Acid Fast Bacilli Culture Pending Resulted Intake and Output 07/22/18 07/23/18 19:00 07:00 Intake Total 1800 ml Balance 1800 ml Intake Oral 1800 ml # Voids 8 2 # Bowel Movements 2 1 Objective PHYSICAL EXAMINATION: GENERAL: The patient is a well-developed and well-nourished -[place] male, in no apparent distress. HEENT: Eyes, pupils are equal and responsive to light and accommodation. Extraocular movements are intact. NECK: Supple without lymphadenopathy. CHEST: Lungs are clear. There are diffuse wheezes in bilateral lung rendon with crackles at bilateral bases. Otherwise, clear to auscultation without wheezes or rales. CARDIOVASCULAR: Regular rhythm and rate. S1 and S2 are normal without murmurs, rubs, or gallops. ABDOMEN: Soft, nontender, and nondistended. Positive bowel sounds. No hepatosplenomegaly. Currently, no rebound or guarding noted. EXTREMITIES: Negative for clubbing, cyanosis, or edema. RECTAL: Refused. GENITAL: Refused. NEUROLOGIC: Cranial nerves II through XII are grossly intact without focal deficits. Motor strength is 5/5 bilaterally. Deep tendon reflexes are 2+ plantar. Assessment/Plan Problem List: (1) Pneumonia, community acquired Assessment & Plan: Continue azithromycin and ceftriaxone per ID. TB cultures pending (2) Pulmonary edema (3) Diabetes mellitus type II, uncontrolled Assessment & Plan: Continue novolog sliding scale (4) Hypertension, uncontrolled (5) Respiratory distress Assessment & Plan: Secondary to pneumonia. See pulmonary note. Status: not improved Wisam Puga MD Jul 23, 2018 17:27
[2018-07-23] MEDS: Albuterol/Ipratropium 3ml neb HHN PRN (18:41)
[2018-07-23] MEDS: Azithromycin 500 MG in NS 275 ML IV SCH (19:46)
[2018-07-23 20:00] VITALS: BP 145/98
[2018-07-23] MEDS: cefTRIAXone 1 GM in NS 55 ML IV SCH (21:25)
[2018-07-23] MEDS: Promethazine/Codeine 5ml UD ORAL PRN (21:39)
[2018-07-24] VITALS: BP 143/97
[2018-07-24 04:00] VITALS: BP 141/89
[2018-07-24] MEDS: NovoLOG Insulin Flexpen SUBQ SCH ×4 (06:51→21:52)
[2018-07-24 08:00] VITALS: BP 156/107
[2018-07-24 08:15] LABS: HEMATOCRIT 37.1 % (42.0-52.0); HEMOGLOBIN 12.7 G/DL (14.2-18.0); MEAN CORPUSCULAR VOLUME 89 FL (80-99); PLATELET COUNT 453 K/UL (150-450); RED BLOOD COUNT 4.19 M/UL (4.70-6.10); RED CELL DISTRIBUTION WIDTH 11.4 % (11.6-14.8); WHITE BLOOD COUNT 15.8 K/UL (4.8-10.8)
[2018-07-24 08:38] LABS: ANION GAP 8 mmol/L (5-15); BLOOD UREA NITROGEN 27 mg/dL (7-18); CALCIUM 8.5 MG/DL (8.5-10.1); CARBON DIOXIDE 26 MMOL/L (21-32); CHLORIDE 99 MMOL/L (98-107); CREATININE 1.2 MG/DL (0.55-1.30); POTASSIUM 4.5 MMOL/L (3.5-5.1); SODIUM 133 MMOL/L (136-145)
[2018-07-24] MEDS: Solu-MEDROL 125mg Inj IVP SCH ×2 (09:56→21:54)
[2018-07-24] MEDS: Heparin 5000 units/ml inj SUBQ SCH ×2 (09:59→21:53)
[2018-07-24] MEDS ORDERED: cloNIDine 0.2mg Tab ORAL PRN (11:15)
[2018-07-24 12:00] VITALS: BP 150/100
--- NOTE | 2018-07-24 14:51 | Internal Med Progress Note ---
Subjective Date of Service: Jul 24, 2018 Physician Name Wisam Puga Attending Physician Oliverio Espinosa MD Current Medications Medications (Trade) Dose Ordered Sig/Josephine Route PRN Reason Start Time Stop Time Status Last Admin Dose Admin Acetaminophen (Tylenol) 650 mg Q4H PRN ORAL Fever/Headache/Mild Pain 07/21/18 19:00 08/19/18 18:59 07/21/18 19:31 Albuterol/ Ipratropium (Albuterol/ Ipratropium) 3 ml Q4H PRN HHN Shortness of Breath 07/21/18 14:45 07/25/18 14:44 07/23/18 18:41 Azithromycin 500 mg/Sodium Chloride 275 ml @ 275 mls/hr Q24H IV 07/21/18 20:00 07/28/18 19:59 07/23/18 19:46 Ceftriaxone Sodium 1 gm/ Sodium Chloride 55 ml @ 110 mls/hr QHS IV 07/21/18 21:00 07/28/18 20:59 07/23/18 21:25 Clonidine HCl (Catapres tab) 0.1 mg Q4H PRN ORAL For High Blood Pressure 07/24/18 11:15 08/23/18 11:14 07/24/18 11:50 Dextrose (Dextrose 50%) 25 ml Q30M PRN IV Hypoglycemia 07/21/18 14:45 08/19/18 22:44 Dextrose (Dextrose 50%) 50 ml Q30M PRN IV Hypoglycemia 07/21/18 14:45 08/19/18 22:44 Heparin Sodium (Porcine) (Heparin 5000 units/ml) 5,000 units EVERY 12 HOURS SUBQ 07/21/18 21:00 08/20/18 08:59 07/24/18 09:59 Insulin Aspart (NovoLOG) BEFORE MEALS AND HS SUBQ 07/21/18 16:30 08/20/18 06:29 07/24/18 11:52 Methylprednisolone Sodium Succinate (Solu-MEDROL) 60 mg EVERY 12 HOURS IVP 07/23/18 21:00 08/22/18 00:00 07/24/18 09:56 Ondansetron HCl (Zofran) 4 mg Q6H PRN IVP Nausea & Vomiting 07/21/18 15:15 08/19/18 21:14 Polyethylene Glycol (Miralax) 17 gm DAILYPRN PRN ORAL Constipation 07/21/18 14:45 08/19/18 14:44 Promethazine HCl/ Codeine (Phenergan with Codeine) 5 ml Q4H PRN ORAL For Cough 07/21/18 14:45 08/20/18 14:44 07/23/18 21:39 Temazepam (Restoril) 15 mg HSPRN PRN ORAL Insomnia 07/21/18 20:00 07/27/18 19:59 07/23/18 21:39 Allergies: Coded Allergies: No Known Allergies (Unverified , 07/20/18) ROS Limited/Unobtainable: No Constitutional: Reports: no symptoms HEENT: Reports: no symptoms Cardiovascular: Reports: no symptoms Respiratory: Reports: no symptoms Gastrointestinal/Abdominal: Reports: no symptoms Genitourinary: Reports: no symptoms Neurologic/Psychiatric: Reports: no symptoms Subjective 47 YO M admitted with shortness of breath. Now pneumonia. Cover for Int Med- Dr Espinosa. Transfer to Med/Surg held due to elevated blood pressure; await echocardiogram result Objective Last Vital Signs Date Time Temp Pulse Resp B/P (MAP) Pulse Ox O2 Delivery O2 Flow Rate FiO2 07/24/18 12:00 98.2 81 20 150/100 (117) 92 98.2 07/24/18 09:00 Nasal Cannula 2.0 07/23/18 18:51 28 Laboratory Tests Test 07/24/18 06:55 White Blood Count 15.8 K/UL (4.8-10.8) H Red Blood Count 4.19 M/UL (4.70-6.10) L Hemoglobin 12.7 G/DL (14.2-18.0) L Hematocrit 37.1 % (42.0-52.0) L Mean Corpuscular Volume 89 FL (80-99) Mean Corpuscular Hemoglobin 30.3 PG (27.0-31.0) Mean Corpuscular Hemoglobin Concent 34.2 G/DL (32.0-36.0) Red Cell Distribution Width 11.4 % (11.6-14.8) L Platelet Count 453 K/UL (150-450) H Mean Platelet Volume 6.2 FL (6.5-10.1) L Neutrophils (%) (Auto) % (45.0-75.0) Lymphocytes (%) (Auto) % (20.0-45.0) Monocytes (%) (Auto) % (1.0-10.0) Eosinophils (%) (Auto) % (0.0-3.0) Basophils (%) (Auto) % (0.0-2.0) Differential Total Cells Counted 100 Neutrophils % (Manual) 83 % (45-75) H Lymphocytes % (Manual) 10 % (20-45) L Monocytes % (Manual) 7 % (1-10) Eosinophils % (Manual) 0 % (0-3) Basophils % (Manual) 0 % (0-2) Band Neutrophils 0 % (0-8) Platelet Estimate Adequate Platelet Morphology Normal Red Blood Cell Morphology Normal Sodium Level 133 MMOL/L (136-145) L Potassium Level 4.5 MMOL/L (3.5-5.1) Chloride Level 99 MMOL/L (98-107) Carbon Dioxide Level 26 MMOL/L (21-32) Anion Gap 8 mmol/L (5-15) Blood Urea Nitrogen 27 mg/dL (7-18) H Creatinine 1.2 MG/DL (0.55-1.30) Estimat Glomerular Filtration Rate > 60 mL/min (>60) Glucose Level 399 MG/DL (74-106) H Calcium Level 8.5 MG/DL (8.5-10.1) Cryptococcus Antigen Pending Microbiology Date/Time Source Procedure Growth Status 07/22/18 06:30 Sputum AFB Specimen Processing Tissue - Final Resulted 07/22/18 06:30 Sputum Acid Fast Bacilli Smear - Final Resulted 07/22/18 06:30 Sputum Acid Fast Bacilli Culture Pending Resulted 07/22/18 06:30 Sputum Gram Stain - Final Resulted 07/22/18 06:30 Sputum Sputum Culture - Preliminary NORMAL UPPER RESPIRATORY BR[place] AT 24 ... Resulted Intake and Output 07/23/18 07/24/18 19:00 07:00 Intake Total 480 ml Balance 480 ml Intake Oral 480 ml # Voids 3 3 # Bowel Movements 1 2 Objective PHYSICAL EXAMINATION: GENERAL: The patient is a well-developed and well-nourished -[place] male, in no apparent distress. HEENT: Eyes, pupils are equal and responsive to light and accommodation. Extraocular movements are intact. NECK: Supple without lymphadenopathy. CHEST: Lungs are clear. There are diffuse wheezes in bilateral lung rendon with crackles at bilateral bases. Otherwise, clear to auscultation without wheezes or rales. CARDIOVASCULAR: Regular rhythm and rate. S1 and S2 are normal without murmurs, rubs, or gallops. ABDOMEN: Soft, nontender, and nondistended. Positive bowel sounds. No hepatosplenomegaly. Currently, no rebound or guarding noted. EXTREMITIES: Negative for clubbing, cyanosis, or edema. RECTAL: Refused. GENITAL: Refused. NEUROLOGIC: Cranial nerves II through XII are grossly intact without focal deficits. Motor strength is 5/5 bilaterally. Deep tendon reflexes are 2+ plantar. Assessment/Plan Problem List: (1) Pneumonia, community acquired Assessment & Plan: Continue azithromycin and ceftriaxone per ID. TB cultures pending (2) Pulmonary edema (3) Diabetes mellitus type II, uncontrolled Assessment & Plan: Continue novolog sliding scale (4) Hypertension, uncontrolled Assessment & Plan: Start metoprolol. Continue prn clonidine. Await echocardiogram and cardiology consult (5) Respiratory distress Assessment & Plan: Secondary to pneumonia. See pulmonary note. Status: not improved Wisam Puga MD Jul 24, 2018 14:51
[2018-07-24] MEDS ORDERED: Albuterol/Ipratropium 3ml neb HHN PRN (16:00)
[2018-07-24] MEDS ORDERED: Promethazine/Codeine 5ml UD ORAL PRN (16:15)
[2018-07-24] MEDS ORDERED: Miralax 17gm pkt ORAL PRN (16:15)
[2018-07-24 16:30] VITALS: BP 157/95
[2018-07-24] MEDS ORDERED: NovoLOG Insulin Flexpen SUBQ SCH (16:30)
--- NOTE | 2018-07-24 19:10 | Consultation ---
History of Present Illness General Date patient seen: Jul 24, 2018 Time patient seen: 19:00 Chief Complaint: Upper Respiratory Illness Reason for Consultation: Cough Present Illness HPI The patient is a 47-year-old -[place] male, presents with complaint of bilateral feet swelling and shortness of breath with cough and fatigue. The patient was found to have bilateral opacities in the lungs - CXR: Bilateral, extensive airspace opacities. Consider noncardiogenic pulmonary edema versus inflammatory/ infectious infiltrates. The patient is admitted for pneumonia versus acute congestive heart failure. He has a hx of DM and HTN. CT scan showed Bilateral, central airspace consolidation moderate to severe in degree. Normal heart size. Findings suggestive of acute pulmonary edema. Favor noncardiogenic causes , the differential diagnosis of which is large including neurogenic edema, allergy, drug toxicity, acute asthma. BNP not elevated, WBC elevates suggestive of infectious process. Cardiology consulted for hypertensive urgency Allergies: Coded Allergies: No Known Allergies (Unverified , 07/20/18) Medication History Scheduled No Known Medications* (NKM - No Known Medications*), 0 ., (Reported) Patient History Healthcare decision maker N Resuscitation status Full Code Advanced Directive on File Review of Systems Constitutional: Reports: fever, malaise, weakness Eye: Reports: no symptoms ENT: Reports: no symptoms Respiratory: Reports: cough, shortness of breath, IVEY, sputum Cardiovascular: Reports: no symptoms Gastrointestinal: Reports: no symptoms Genitourinary: Reports: no symptoms Musculoskeletal: Reports: no symptoms Skin: Reports: no symptoms Psychiatric: Reports: no symptoms Neurological: Reports: no symptoms Endocrine: Reports: no symptoms Hematologic/Lymphatic: Reports: no symptoms Physical Exam General Appearance: no apparent distress, alert Lines, tubes and drains: peripheral HEENT: normocephalic, atraumatic, anicteric, mucous membranes moist, PERRL Neck: non-tender, normal alignment, supple, normal inspection Respiratory/Chest: crackles/rales, rhonchi - bilaterally Cardiovascular/Chest: normal peripheral pulses, normal rate, regular rhythm, no JVD Abdomen: normal bowel sounds, non tender, soft, no organomegaly, no mass, abnormal bowel sounds Extremities: normal range of motion, non-tender, normal inspection 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, no motor/sensory deficits, alert, oriented x 3 Last 24 Hour Vital Signs Date Time Temp Pulse Resp B/P (MAP) Pulse Ox O2 Delivery O2 Flow Rate FiO2 07/24/18 16:30 97.7 84 19 157/95 (115) 93 97.7 07/24/18 12:00 98.2 81 20 150/100 (117) 92 98.2 07/24/18 11:50 153/104 07/24/18 09:00 Nasal Cannula 2.0 07/24/18 08:00 97.8 93 18 156/107 (123) 95 97.8 07/24/18 04:00 97.8 86 17 141/89 (106) 92 97.8 07/24/18 00:00 97.5 89 17 143/97 (112) 95 97.5 07/23/18 21:00 Nasal Cannula 2.0 07/23/18 20:00 96.3 90 18 145/98 (114) 92 96.3 Intake and Output 07/23/18 07/24/18 19:00 07:00 Intake Total 480 ml Balance 480 ml Intake Oral 480 ml # Voids 3 3 # Bowel Movements 1 2 Laboratory Tests Test 07/24/18 06:55 White Blood Count 15.8 K/UL (4.8-10.8) H Red Blood Count 4.19 M/UL (4.70-6.10) L Hemoglobin 12.7 G/DL (14.2-18.0) L Hematocrit 37.1 % (42.0-52.0) L Mean Corpuscular Volume 89 FL (80-99) Mean Corpuscular Hemoglobin 30.3 PG (27.0-31.0) Mean Corpuscular Hemoglobin Concent 34.2 G/DL (32.0-36.0) Red Cell Distribution Width 11.4 % (11.6-14.8) L Platelet Count 453 K/UL (150-450) H Mean Platelet Volume 6.2 FL (6.5-10.1) L Neutrophils (%) (Auto) % (45.0-75.0) Lymphocytes (%) (Auto) % (20.0-45.0) Monocytes (%) (Auto) % (1.0-10.0) Eosinophils (%) (Auto) % (0.0-3.0) Basophils (%) (Auto) % (0.0-2.0) Differential Total Cells Counted 100 Neutrophils % (Manual) 83 % (45-75) H Lymphocytes % (Manual) 10 % (20-45) L Monocytes % (Manual) 7 % (1-10) Eosinophils % (Manual) 0 % (0-3) Basophils % (Manual) 0 % (0-2) Band Neutrophils 0 % (0-8) Platelet Estimate Adequate Platelet Morphology Normal Red Blood Cell Morphology Normal Sodium Level 133 MMOL/L (136-145) L Potassium Level 4.5 MMOL/L (3.5-5.1) Chloride Level 99 MMOL/L (98-107) Carbon Dioxide Level 26 MMOL/L (21-32) Anion Gap 8 mmol/L (5-15) Blood Urea Nitrogen 27 mg/dL (7-18) H Creatinine 1.2 MG/DL (0.55-1.30) Estimat Glomerular Filtration Rate > 60 mL/min (>60) Glucose Level 399 MG/DL (74-106) H Calcium Level 8.5 MG/DL (8.5-10.1) Cryptococcus Antigen Pending Height (Feet): 5 Height (Inches): 9.00 Weight (Pounds): 238 Medications Current Medications Medications (Trade) Dose Ordered Sig/Josephine Route PRN Reason Start Time Stop Time Status Last Admin Dose Admin Acetaminophen (Tylenol) 650 mg Q4H PRN ORAL Fever/Headache/Mild Pain 07/24/18 19:00 08/19/18 18:59 Albuterol/ Ipratropium (Albuterol/ Ipratropium) 3 ml Q4H PRN HHN Shortness of Breath 07/24/18 16:00 07/25/18 15:59 Azithromycin 500 mg/Sodium Chloride 275 ml @ 275 mls/hr Q24H IV 07/24/18 20:00 07/28/18 19:59 Ceftriaxone Sodium 1 gm/ Sodium Chloride 55 ml @ 110 mls/hr QHS IV 07/24/18 21:00 07/28/18 20:59 Clonidine HCl (Catapres tab) 0.1 mg Q4H PRN ORAL For High Blood Pressure 07/24/18 16:15 08/23/18 16:14 Dextrose (Dextrose 50%) 25 ml Q30M PRN IV Hypoglycemia 07/24/18 18:13 08/23/18 18:12 Dextrose (Dextrose 50%) 50 ml Q30M PRN IV Hypoglycemia 07/24/18 18:13 08/23/18 18:12 Heparin Sodium (Porcine) (Heparin 5000 units/ml) 5,000 units EVERY 12 HOURS SUBQ 07/24/18 21:00 08/20/18 08:59 Insulin Aspart (NovoLOG) BEFORE MEALS AND HS SUBQ 07/24/18 21:00 08/23/18 20:59 07/24/18 18:39 Methylprednisolone Sodium Succinate (Solu-MEDROL) 60 mg EVERY 12 HOURS IVP 07/24/18 21:00 08/22/18 00:00 Metoprolol Succinate (Toprol XL) 100 mg DAILY ORAL 07/25/18 09:00 08/24/18 08:59 Ondansetron HCl (Zofran) 4 mg Q6H PRN IVP Nausea & Vomiting 07/24/18 16:15 08/19/18 16:14 Polyethylene Glycol (Miralax) 17 gm DAILYPRN PRN ORAL Constipation 07/24/18 16:15 08/23/18 16:14 Promethazine HCl/ Codeine (Phenergan with Codeine) 5 ml Q4H PRN ORAL For Cough 07/24/18 16:15 08/20/18 16:14 Temazepam (Restoril) 15 mg HSPRN PRN ORAL Insomnia 07/24/18 20:00 07/27/18 19:59 Assessment/Plan Status: stable Assessment/Plan Assessment 1. Bilateral pneumonia. 2. Acute pulmonary edema. 3. Diabetes, type 2. 4. Hypertension. Plan Echocardiogram Losartan - HCTZ 50/12.5 mg Outpatient stress test Defer cardiac cath Abx for PNA PPD Steroids Pulmonary toilet/optimize hygiene/ambulate Ubaldo Dawson MD Jul 24, 2018 19:10
[2018-07-24] MEDS: Azithromycin 500 MG in NS 275 ML IV SCH (19:54)
[2018-07-24 20:00] VITALS: BP 156/102
[2018-07-24] MEDS: cefTRIAXone 1 GM in NS 55 ML IV SCH (21:00)
--- NOTE | 2018-07-24 22:12 | Infectious Diseases Prog Note ---
Assessment/Plan Assessment/Plan ASSESSMENT: Luekocytosis ( on steroids ) Pneumonia (community-acquired versus pertussis, fungal andtuberculosis less likely) AFB x 2 : Neg Fever, Sp Diabetes. Hypertension. PLAN: - on Zithromax and Rocephin, day #4 -Monitor CBC. -Monitor BMP. -Monitor cultures (blood, sputum). -Sputum for AFB x3 was ordered. -Fungal serology. - order coccidiomycosis, blastomycosis, and histoplasma urine antigen. - Cryptococcus antigen. - Pertussis PCR from nasopharyngeal. - Pertussis serology. - We will monitor chest x-ray. Subjective Allergies: Coded Allergies: No Known Allergies (Unverified , 07/20/18) Subjective cough improving Objective Vital Signs Last 24 Hour Vital Signs Date Time Temp Pulse Resp B/P (MAP) Pulse Ox O2 Delivery O2 Flow Rate FiO2 07/24/18 20:00 97.7 84 19 156/102 (120) 95 97.7 07/24/18 19:56 Nasal Cannula 2.0 28 07/24/18 19:56 94 Nasal Cannula 2.0 28 07/24/18 19:56 89 20 Nasal Cannula 2.0 28 07/24/18 16:30 97.7 84 19 157/95 (115) 93 97.7 07/24/18 12:00 98.2 81 20 150/100 (117) 92 98.2 07/24/18 11:50 153/104 07/24/18 09:00 Nasal Cannula 2.0 07/24/18 08:00 97.8 93 18 156/107 (123) 95 97.8 07/24/18 04:00 97.8 86 17 141/89 (106) 92 97.8 07/24/18 00:00 97.5 89 17 143/97 (112) 95 97.5 Height (Feet): 5 Height (Inches): 9.00 Weight (Pounds): 238 HEENT: mucous membranes moist Respiratory/Chest: no accessory muscle use Cardiovascular: regular rhythm Abdomen: soft, non tender Microbiology Date/Time Source Procedure Growth Status 07/22/18 06:30 Sputum AFB Specimen Processing Tissue - Final Resulted 07/22/18 06:30 Sputum Acid Fast Bacilli Smear - Final Resulted 07/22/18 06:30 Sputum Acid Fast Bacilli Culture Pending Resulted 07/22/18 06:30 Sputum Gram Stain - Final Resulted 07/22/18 06:30 Sputum Sputum Culture - Preliminary NORMAL UPPER RESPIRATORY [place] AT 24 ... Resulted Laboratory Tests Test 07/24/18 06:55 White Blood Count 15.8 K/UL (4.8-10.8) H Red Blood Count 4.19 M/UL (4.70-6.10) L Hemoglobin 12.7 G/DL (14.2-18.0) L Hematocrit 37.1 % (42.0-52.0) L Mean Corpuscular Volume 89 FL (80-99) Mean Corpuscular Hemoglobin 30.3 PG (27.0-31.0) Mean Corpuscular Hemoglobin Concent 34.2 G/DL (32.0-36.0) Red Cell Distribution Width 11.4 % (11.6-14.8) L Platelet Count 453 K/UL (150-450) H Mean Platelet Volume 6.2 FL (6.5-10.1) L Neutrophils (%) (Auto) % (45.0-75.0) Lymphocytes (%) (Auto) % (20.0-45.0) Monocytes (%) (Auto) % (1.0-10.0) Eosinophils (%) (Auto) % (0.0-3.0) Basophils (%) (Auto) % (0.0-2.0) Differential Total Cells Counted 100 Neutrophils % (Manual) 83 % (45-75) H Lymphocytes % (Manual) 10 % (20-45) L Monocytes % (Manual) 7 % (1-10) Eosinophils % (Manual) 0 % (0-3) Basophils % (Manual) 0 % (0-2) Band Neutrophils 0 % (0-8) Platelet Estimate Adequate Platelet Morphology Normal Red Blood Cell Morphology Normal Sodium Level 133 MMOL/L (136-145) L Potassium Level 4.5 MMOL/L (3.5-5.1) Chloride Level 99 MMOL/L (98-107) Carbon Dioxide Level 26 MMOL/L (21-32) Anion Gap 8 mmol/L (5-15) Blood Urea Nitrogen 27 mg/dL (7-18) H Creatinine 1.2 MG/DL (0.55-1.30) Estimat Glomerular Filtration Rate > 60 mL/min (>60) Glucose Level 399 MG/DL (74-106) H Calcium Level 8.5 MG/DL (8.5-10.1) Cryptococcus Antigen Pending Current Medications Medications (Trade) Dose Ordered Sig/Josephine Route PRN Reason Start Time Stop Time Status Last Admin Dose Admin Acetaminophen (Tylenol) 650 mg Q4H PRN ORAL Fever/Headache/Mild Pain 07/24/18 19:00 08/19/18 18:59 Albuterol/ Ipratropium (Albuterol/ Ipratropium) 3 ml Q4H PRN HHN Shortness of Breath 07/24/18 16:00 07/25/18 15:59 Azithromycin 500 mg/Sodium Chloride 275 ml @ 275 mls/hr Q24H IV 07/24/18 20:00 07/28/18 19:59 07/24/18 19:54 Ceftriaxone Sodium 1 gm/ Sodium Chloride 55 ml @ 110 mls/hr QHS IV 07/24/18 21:00 07/28/18 20:59 07/24/18 21:00 Clonidine HCl (Catapres tab) 0.1 mg Q4H PRN ORAL For High Blood Pressure 07/24/18 16:15 08/23/18 16:14 Dextrose (Dextrose 50%) 25 ml Q30M PRN IV Hypoglycemia 07/24/18 18:13 08/23/18 18:12 Dextrose (Dextrose 50%) 50 ml Q30M PRN IV Hypoglycemia 07/24/18 18:13 08/23/18 18:12 HCTZ/Losartan Potassium (Hyzaar 50-12.5) 1 tab DAILY ORAL 07/25/18 09:00 08/24/18 08:59 Heparin Sodium (Porcine) (Heparin 5000 units/ml) 5,000 units EVERY 12 HOURS SUBQ 07/24/18 21:00 08/20/18 08:59 07/24/18 21:53 Insulin Aspart (NovoLOG) BEFORE MEALS AND HS SUBQ 07/24/18 21:00 08/23/18 20:59 07/24/18 21:52 Methylprednisolone Sodium Succinate (Solu-MEDROL) 60 mg EVERY 12 HOURS IVP 07/24/18 21:00 08/22/18 00:00 07/24/18 21:54 Ondansetron HCl (Zofran) 4 mg Q6H PRN IVP Nausea & Vomiting 10/7/18 16:15 08/19/18 16:14 Polyethylene Glycol (Miralax) 17 gm DAILYPRN PRN ORAL Constipation 07/24/18 16:15 08/23/18 16:14 Promethazine HCl/ Codeine (Phenergan with Codeine) 5 ml Q4H PRN ORAL For Cough 07/24/18 16:15 08/20/18 16:14 Temazepam (Restoril) 15 mg HSPRN PRN ORAL Insomnia 07/24/18 20:00 07/27/18 19:59 07/24/18 21:56 Jama Paul MD Jul 24, 2018 22:12
[2018-07-25] VITALS (7 sets, daily range): BP systolic 137–182; BP diastolic 95–107
[2018-07-25] MEDS: NovoLOG Insulin Flexpen SUBQ SCH ×4 (06:35→20:30)
[2018-07-25 07:29] LABS: BASOPHILS % (AUTO) 0.2 % (0.0-2.0); EOSINOPHILS % (AUTO) 0.2 % (0.0-3.0); HEMATOCRIT 38.9 % (42.0-52.0); HEMOGLOBIN 13.7 G/DL (14.2-18.0); MEAN CORPUSCULAR VOLUME 87 FL (80-99); MONOCYTES % (AUTO) 4.4 % (1.0-10.0); NEUTROPHILS % (AUTO) 84.2 % (45.0-75.0); PLATELET COUNT 489 K/UL (150-450); RED BLOOD COUNT 4.48 M/UL (4.70-6.10); WHITE BLOOD COUNT 15.7 K/UL (4.8-10.8)
--- NOTE | 2018-07-25 07:34 | Cardiology Report ---
APPROVED REPORT EXAM: Two-dimensional and M-mode echocardiogram with Doppler and color Doppler. INDICATION Left Ventricular Function M-Mode DIMENSIONS IVSd1.3 (0.7-1.1cm)Left Atrium (MM)4.0 (1.6-4.0cm) LVDd6.1 (3.5-5.6cm)Aortic Root3.3 (2.0-3.7cm) PWd0.9 (0.7-1.1cm)Aortic Cusp Exc.2.0 (1.5-2.0cm) LVDs5.1 (2.5-4.0cm) PWs1.6 cm Technically difficult study due to patient's breathing. Mild left ventricular enlargement. Global left ventricular hypokinesis with paradoxical septal motion. Left ventricular ejection fraction estimated to be 35 %. Mild left ventricular hypertrophy. No evidence of pericardial effusion. All other cardiac chamber sizes are within normal limits. Normal aortic valve structure with adequate cusp excursion. Mildly thickened mitral valve leaflets with normal excursion. Mild mitral annulus and aortic root calcification. Normal pulmonic valve structure. Normal tricuspid valve structure. IVC dilated at 2.8 cm with physiological collapse, suggestive of increased RA pressure. A color flow and spectral Doppler study was performed and revealed: No aortic insufficiency. Trace mitral regurgitation. Mitral inflow velocities indicates possible pseudo normalization pattern implying significant left ventricular diastolic dysfunction (Grade II). Mild tricuspid regurgitation. Tricuspid systolic velocities suggests peak right ventricular systolic pressure of 55 mmHg, consistent with moderate pulmonary hypertension. No pulmonic regurgitation present.
[2018-07-25 07:48] LABS: ANION GAP 8 mmol/L (5-15); BLOOD UREA NITROGEN 21 mg/dL (7-18); CALCIUM 8.5 MG/DL (8.5-10.1); CARBON DIOXIDE 26 MMOL/L (21-32); CHLORIDE 100 MMOL/L (98-107); CREATININE 0.9 MG/DL (0.55-1.30); POTASSIUM 4.2 MMOL/L (3.5-5.1); SODIUM 134 MMOL/L (136-145)
[2018-07-25] MEDS ORDERED: Metoprolol Succinate XL 100mg tab ORAL SCH ×2 (09:00)
[2018-07-25] MEDS: Heparin 5000 units/ml inj SUBQ SCH ×2 (09:00→20:39)
[2018-07-25] MEDS: Hyzaar 12.5mg/50mg tab ORAL SCH (09:22)
[2018-07-25] MEDS: Solu-MEDROL 125mg Inj IVP SCH (09:23)
--- NOTE | 2018-07-25 11:04 | Diagnostic Imaging Report ---
Indication: Dyspnea Comparison: 07/21/2018 A single view chest radiograph was obtained. Findings: There may be some improvement in the degree of consolidation although there is still extensive airspace opacification present. Heart size is a relatively normal. Lung volumes are low. IMPRESSION: Interstitial and alveolar airspace disease bilaterally. Findings are mildly improved since 07/21/2018
--- NOTE | 2018-07-25 13:06 | Infectious Diseases Prog Note ---
Assessment/Plan Assessment/Plan ASSESSMENT: Luekocytosis ( on steroids ) Pneumonia (community-acquired versus pertussis, fungal andtuberculosis less likely) AFB smear x 2 : Neg ; cx p Neg: HIV ab sc, TB-spot -pending MTB PCR, histo, CrAg, Coci Fever, Sp Diabetes. Hypertension. PLAN: - on Zithromax and Rocephin, day #5 -Monitor CBC. -Monitor BMP. -Monitor cultures (blood, sputum). -Sputum for AFB x3 was ordered. -f/u Fungal serology: coccidiomycosis, blastomycosis, and histoplasma urine antigen, Cryptococcus antigen. - f/u Pertussis PCR from nasopharyngeal, Pertussis serology. - We will monitor chest x-ray. -legionella ag urine Subjective Allergies: Coded Allergies: No Known Allergies (Unverified , 07/20/18) Subjective afebrile >48hs AFB smear neg x2 Objective Vital Signs Last 24 Hour Vital Signs Date Time Temp Pulse Resp B/P (MAP) Pulse Ox O2 Delivery O2 Flow Rate FiO2 07/25/18 12:00 97.9 84 18 137/95 (109) 95 97.9 07/25/18 09:22 148/107 07/25/18 08:15 Room Air 07/25/18 08:00 97.0 77 18 148/107 (121) 96 97.0 07/25/18 04:00 98.1 82 18 146/107 (120) 95 98.1 07/25/18 00:00 97.7 82 18 152/104 (120) 94 97.7 07/24/18 21:00 Room Air 07/24/18 20:00 97.7 84 19 156/102 (120) 95 97.7 07/24/18 19:56 Nasal Cannula 2.0 28 07/24/18 19:56 94 Nasal Cannula 2.0 28 07/24/18 19:56 89 20 Nasal Cannula 2.0 28 07/24/18 16:30 97.7 84 19 157/95 (115) 93 97.7 Height (Feet): 5 Height (Inches): 9.00 Weight (Pounds): 238 Objective General Appearance: no apparent distress, alert Lines, tubes and drains: peripheral HEENT: normocephalic, atraumatic, anicteric, mucous membranes moist, PERRL Neck: non-tender, normal alignment, supple, normal inspection Respiratory/Chest: crackles/rales, rhonchi - bilaterally Cardiovascular/Chest: normal peripheral pulses, normal rate, regular rhythm, no JVD Abdomen: normal bowel sounds, non tender, soft, no organomegaly, no mass, abnormal bowel sounds Extremities: normal range of motion, non-tender, normal inspection 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 tuberculosis Complex DNA (PCR) Pending White Blood Count 15.7 K/UL (4.8-10.8) H Red Blood Count 4.48 M/UL (4.70-6.10) L Hemoglobin 13.7 G/DL (14.2-18.0) L Hematocrit 38.9 % (42.0-52.0) L Mean Corpuscular Volume 87 FL (80-99) Mean Corpuscular Hemoglobin 30.6 PG (27.0-31.0) Mean Corpuscular Hemoglobin Concent 35.2 G/DL (32.0-36.0) Red Cell Distribution Width 11.0 % (11.6-14.8) L Platelet Count 489 K/UL (150-450) H Mean Platelet Volume 6.4 FL (6.5-10.1) L Neutrophils (%) (Auto) 84.2 % (45.0-75.0) H Lymphocytes (%) (Auto) 11.0 % (20.0-45.0) L Monocytes (%) (Auto) 4.4 % (1.0-10.0) Eosinophils (%) (Auto) 0.2 % (0.0-3.0) Basophils (%) (Auto) 0.2 % (0.0-2.0) Sodium Level 134 MMOL/L (136-145) L Potassium Level 4.2 MMOL/L (3.5-5.1) Chloride Level 100 MMOL/L (98-107) Carbon Dioxide Level 26 MMOL/L (21-32) Anion Gap 8 mmol/L (5-15) Blood Urea Nitrogen 21 mg/dL (7-18) H Creatinine 0.9 MG/DL (0.55-1.30) Estimat Glomerular Filtration Rate > 60 mL/min (>60) Glucose Level 314 MG/DL (74-106) H Calcium Level 8.5 MG/DL (8.5-10.1) Current Medications Medications (Trade) Dose Ordered Sig/Josephine Route PRN Reason Start Time Stop Time Status Last Admin Dose Admin Acetaminophen (Tylenol) 650 mg Q4H PRN ORAL Fever/Headache/Mild Pain 07/24/18 19:00 08/19/18 18:59 Albuterol/ Ipratropium (Albuterol/ Ipratropium) 3 ml Q4H PRN HHN Shortness of Breath 07/24/18 16:00 07/25/18 15:59 Azithromycin 500 mg/Sodium Chloride 275 ml @ 275 mls/hr Q24H IV 07/24/18 20:00 07/28/18 19:59 07/24/18 19:54 Ceftriaxone Sodium 1 gm/ Sodium Chloride 55 ml @ 110 mls/hr QHS IV 07/24/18 21:00 07/28/18 20:59 07/24/18 21:00 Clonidine HCl (Catapres tab) 0.1 mg Q4H PRN ORAL For High Blood Pressure 07/24/18 16:15 08/23/18 16:14 Dextrose (Dextrose 50%) 25 ml Q30M PRN IV Hypoglycemia 07/24/18 18:13 08/23/18 18:12 Dextrose (Dextrose 50%) 50 ml Q30M PRN IV Hypoglycemia 07/24/18 18:13 08/23/18 18:12 HCTZ/Losartan Potassium (Hyzaar 50-12.5) 1 tab DAILY ORAL 07/25/18 09:00 08/24/18 08:59 07/25/18 09:22 Heparin Sodium (Porcine) (Heparin 5000 units/ml) 5,000 units EVERY 12 HOURS SUBQ 07/24/18 21:00 08/20/18 08:59 07/24/18 21:53 Insulin Aspart (NovoLOG) BEFORE MEALS AND HS SUBQ 07/24/18 21:00 08/23/18 20:59 07/25/18 11:42 Methylprednisolone Sodium Succinate (Solu-MEDROL) 60 mg EVERY 12 HOURS IVP 07/24/18 21:00 08/22/18 00:00 07/25/18 09:23 Ondansetron HCl (Zofran) 4 mg Q6H PRN IVP Nausea & Vomiting 07/24/18 16:15 08/19/18 16:14 Polyethylene Glycol (Miralax) 17 gm DAILYPRN PRN ORAL Constipation 07/24/18 16:15 08/23/18 16:14 Promethazine HCl/ Codeine (Phenergan with Codeine) 5 ml Q4H PRN ORAL For Cough 07/24/18 16:15 08/20/18 16:14 Temazepam (Restoril) 15 mg HSPRN PRN ORAL Insomnia 07/24/18 20:00 07/27/18 19:59 07/24/18 21:56 Rocio Wayne M.D. Jul 25, 2018 13:06
--- NOTE | 2018-07-25 15:18 | Pulmonology Progress Note ---
Assessment/Plan Problems: (1) Interstitial pneumonia Assessment & Plan: clinically sounds like Pertussis (2) Bilateral pneumonia (3) Respiratory distress (4) Diabetes mellitus type II, uncontrolled Assessment/Plan feeling better, less cough continue Zithromx for atypical pneumonia taper steroids to 40 daily sputum pending HIV was negative cxr showed minimal improvement PPD skin negative Subjective ROS Limited/Unobtainable: No Interval Events: feeling much better Allergies: Coded Allergies: No Known Allergies (Unverified , 07/20/18) Objective Last 24 Hour Vital Signs Date Time Temp Pulse Resp B/P (MAP) Pulse Ox O2 Delivery O2 Flow Rate FiO2 07/25/18 12:00 97.9 84 18 137/95 (109) 95 97.9 07/25/18 09:22 148/107 07/25/18 08:15 Room Air 07/25/18 08:00 97.0 77 18 148/107 (121) 96 97.0 07/25/18 04:00 98.1 82 18 146/107 (120) 95 98.1 07/25/18 00:00 97.7 82 18 152/104 (120) 94 97.7 07/24/18 21:00 Room Air 07/24/18 20:00 97.7 84 19 156/102 (120) 95 97.7 07/24/18 19:56 Nasal Cannula 2.0 28 07/24/18 19:56 94 Nasal Cannula 2.0 28 07/24/18 19:56 89 20 Nasal Cannula 2.0 28 07/24/18 16:30 97.7 84 19 157/95 (115) 93 97.7 Intake and Output 07/24/18 07/25/18 19:00 07:00 Intake Total 900 ml 810 ml Balance 900 ml 810 ml Intake Oral 900 ml 480 ml IV Total 330 ml # Voids 3 2 # Bowel Movements 1 General Appearance: WD/WN HEENT: normocephalic Respiratory/Chest: chest wall non-tender, crackles/rales Cardiovascular: normal peripheral pulses, regular rhythm Abdomen: normal bowel sounds, soft, non tender Genitourinary: normal external genitalia Extremities: no clubbing Skin: no lesions Microbiology Date/Time Source Procedure Growth Status 07/24/18 06:00 Sputum AFB Specimen Processing Tissue - Final Resulted 07/24/18 06:00 Sputum Acid Fast Bacilli Smear - Final Resulted 07/24/18 06:00 Sputum Acid Fast Bacilli Culture Pending Resulted Laboratory Tests 07/25/18 05:20: M. tuberculosis Complex DNA (PCR) [Pending] 07/25/18 07:05: White Blood Count 15.7H, Red Blood Count 4.48L, Hemoglobin 13.7L, Hematocrit 38.9L, Mean Corpuscular Volume 87, Mean Corpuscular Hemoglobin 30.6, Mean Corpuscular Hemoglobin Concent 35.2, Red Cell Distribution Width 11.0L, Platelet Count 489H, Mean Platelet Volume 6.4L, Neutrophils (%) (Auto) 84.2H, Lymphocytes (%) (Auto) 11.0L, Monocytes (%) (Auto) 4.4, Eosinophils (%) (Auto) 0.2, Basophils (%) (Auto) 0.2, Sodium Level 134L, Potassium Level 4.2, Chloride Level 100, Carbon Dioxide Level 26, Anion Gap 8, Blood Urea Nitrogen 21H, Creatinine 0.9, Estimat Glomerular Filtration Rate > 60, Glucose Level 314H, Calcium Level 8.5 07/25/18 14:15: Urine Legionella Antigen [Pending] Current Medications Medications (Trade) Dose Ordered Sig/Josephine Route PRN Reason Start Time Stop Time Status Last Admin Dose Admin Acetaminophen (Tylenol) 650 mg Q4H PRN ORAL Fever/Headache/Mild Pain 07/24/18 19:00 08/19/18 18:59 Albuterol/ Ipratropium (Albuterol/ Ipratropium) 3 ml Q4H PRN HHN Shortness of Breath 07/24/18 16:00 07/25/18 15:59 Azithromycin 500 mg/Sodium Chloride 275 ml @ 275 mls/hr Q24H IV 07/24/18 20:00 07/28/18 19:59 07/24/18 19:54 Ceftriaxone Sodium 1 gm/ Sodium Chloride 55 ml @ 110 mls/hr QHS IV 07/24/18 21:00 07/28/18 20:59 07/24/18 21:00 Clonidine HCl (Catapres tab) 0.1 mg Q4H PRN ORAL For High Blood Pressure 07/24/18 16:15 08/23/18 16:14 Dextrose (Dextrose 50%) 25 ml Q30M PRN IV Hypoglycemia 07/24/18 18:13 11/6/18 18:12 Dextrose (Dextrose 50%) 50 ml Q30M PRN IV Hypoglycemia 07/24/18 18:13 08/23/18 18:12 HCTZ/Losartan Potassium (Hyzaar 50-12.5) 1 tab DAILY ORAL 07/25/18 09:00 08/24/18 08:59 07/25/18 09:22 Heparin Sodium (Porcine) (Heparin 5000 units/ml) 5,000 units EVERY 12 HOURS SUBQ 07/24/18 21:00 08/20/18 08:59 07/24/18 21:53 Insulin Aspart (NovoLOG) BEFORE MEALS AND HS SUBQ 07/24/18 21:00 08/23/18 20:59 07/25/18 11:42 Methylprednisolone Sodium Succinate (Solu-MEDROL) 60 mg EVERY 12 HOURS IVP 07/24/18 21:00 08/22/18 00:00 07/25/18 09:23 Ondansetron HCl (Zofran) 4 mg Q6H PRN IVP Nausea & Vomiting 07/24/18 16:15 08/19/18 16:14 Polyethylene Glycol (Miralax) 17 gm DAILYPRN PRN ORAL Constipation 07/24/18 16:15 08/23/18 16:14 Promethazine HCl/ Codeine (Phenergan with Codeine) 5 ml Q4H PRN ORAL For Cough 07/24/18 16:15 08/20/18 16:14 Temazepam (Restoril) 15 mg HSPRN PRN ORAL Insomnia 07/24/18 20:00 07/27/18 19:59 07/24/18 21:56 Pamela Underwood MD Jul 25, 2018 15:18
[2018-07-25] MEDS: cloNIDine 0.2mg Tab ORAL PRN ×2 (17:01→21:26)
--- NOTE | 2018-07-25 17:48 | Cardiology Progress Note ---
Assessment/Plan Status: stable Assessment/Plan Assessment 1. Bilateral pneumonia. 2. Acute pulmonary edema. 3. Diabetes, type 2. 4. Hypertension. Plan Echocardiogram: Left ventricular ejection fraction estimated to be 35 %., PA pressure 50 grade II diastolic dysfunction Losartan - HCTZ 50/12.5 mg Outpatient stress test to evaluate etiology of systolic dysfunction Defer cardiac cath - no chest pain Abx for PNA PPD Steroids being tapered Pulmonary toilet/optimize hygiene/ambulate lasix 20 mg daily to reduce filling pressures and PA pressures Check BNP/Troponin Subjective Cardiovascular: Reports: no symptoms Respiratory: Reports: no symptoms Gastrointestinal/Abdominal: Reports: no symptoms Genitourinary: Reports: no symptoms Subjective AFB smear x 2 , steroids being tapered. WBC elevated still , CXR Interstitial and alveolar airspace disease bilaterally. Findings are mildly improved Echo Left ventricular ejection fraction estimated to be 35 %., PA pressure 50, grade II diastolic dysfunction Objective Last 24 Hour Vital Signs Date Time Temp Pulse Resp B/P (MAP) Pulse Ox O2 Delivery O2 Flow Rate FiO2 07/25/18 17:01 182/100 07/25/18 16:00 97.7 76 19 182/100 (127) 98 97.7 07/25/18 12:00 97.9 84 18 137/95 (109) 95 97.9 07/25/18 09:22 148/107 07/25/18 08:15 Room Air 07/25/18 08:00 97.0 77 18 148/107 (121) 96 97.0 07/25/18 04:00 98.1 82 18 146/107 (120) 95 98.1 07/25/18 00:00 97.7 82 18 152/104 (120) 94 97.7 07/24/18 21:00 Room Air 07/24/18 20:00 97.7 84 19 156/102 (120) 95 97.7 07/24/18 19:56 Nasal Cannula 2.0 28 07/24/18 19:56 94 Nasal Cannula 2.0 28 07/24/18 19:56 89 20 Nasal Cannula 2.0 28 General Appearance: no apparent distress, alert EENT: PERRL/EOMI, normal ENT inspection, TMs normal, pharynx normal Neck: non-tender, normal alignment, supple, normal inspection, no JVD Rhythm: NSR Cardiovascular: normal peripheral pulses, normal rate, regular rhythm, gallop/ S4 Respiratory/Chest: chest wall non-tender, lungs clear, normal breath sounds, no respiratory distress, no accessory muscle use Abdomen: normal bowel sounds, non tender, soft, no organomegaly, no mass Extremities: normal range of motion, non-tender, normal inspection 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 tuberculosis Complex DNA (PCR) Pending White Blood Count 15.7 K/UL (4.8-10.8) H Red Blood Count 4.48 M/UL (4.70-6.10) L Hemoglobin 13.7 G/DL (14.2-18.0) L Hematocrit 38.9 % (42.0-52.0) L Mean Corpuscular Volume 87 FL (80-99) Mean Corpuscular Hemoglobin 30.6 PG (27.0-31.0) Mean Corpuscular Hemoglobin Concent 35.2 G/DL (32.0-36.0) Red Cell Distribution Width 11.0 % (11.6-14.8) L Platelet Count 489 K/UL (150-450) H Mean Platelet Volume 6.4 FL (6.5-10.1) L Neutrophils (%) (Auto) 84.2 % (45.0-75.0) H Lymphocytes (%) (Auto) 11.0 % (20.0-45.0) L Monocytes (%) (Auto) 4.4 % (1.0-10.0) Eosinophils (%) (Auto) 0.2 % (0.0-3.0) Basophils (%) (Auto) 0.2 % (0.0-2.0) Sodium Level 134 MMOL/L (136-145) L Potassium Level 4.2 MMOL/L (3.5-5.1) Chloride Level 100 MMOL/L (98-107) Carbon Dioxide Level 26 MMOL/L (21-32) Anion Gap 8 mmol/L (5-15) Blood Urea Nitrogen 21 mg/dL (7-18) H Creatinine 0.9 MG/DL (0.55-1.30) Estimat Glomerular Filtration Rate > 60 mL/min (>60) Glucose Level 314 MG/DL (74-106) H Calcium Level 8.5 MG/DL (8.5-10.1) Urine Legionella Antigen Pending Microbiology Date/Time Source Procedure Growth Status 07/24/18 06:00 Sputum AFB Specimen Processing Tissue - Final Resulted 07/24/18 06:00 Sputum Acid Fast Bacilli Smear - Final Resulted 07/24/18 06:00 Sputum Acid Fast Bacilli Culture Pending Resulted Ubaldo Dawson MD Jul 25, 2018 17:48
[2018-07-25] MEDS: Azithromycin 500 MG in NS 275 ML IV SCH ×2 (20:25→22:23)
[2018-07-25] MEDS: cefTRIAXone 1 GM in NS 55 ML IV SCH (21:20)
[2018-07-26] VITALS: BP 128/85
[2018-07-26 04:00] VITALS: BP 142/102
[2018-07-26] MEDS: NovoLOG Insulin Flexpen SUBQ SCH ×3 (05:59→16:28)
[2018-07-26 06:38] LABS: BASOPHILS % (AUTO) 0.5 % (0.0-2.0); EOSINOPHILS % (AUTO) 1.7 % (0.0-3.0); HEMATOCRIT 37.4 % (42.0-52.0); HEMOGLOBIN 13.4 G/DL (14.2-18.0); LYMPHOCYTES % (AUTO) 24.6 % (20.0-45.0); MEAN CORPUSCULAR VOLUME 88 FL (80-99); MONOCYTES % (AUTO) 7.8 % (1.0-10.0); NEUTROPHILS % (AUTO) 65.4 % (45.0-75.0); PLATELET COUNT 471 K/UL (150-450); RED BLOOD COUNT 4.27 M/UL (4.70-6.10); RED CELL DISTRIBUTION WIDTH 11.4 % (11.6-14.8); WHITE BLOOD COUNT 16.9 K/UL (4.8-10.8)
[2018-07-26 07:19] LABS: ALANINE AMINOTRANSFERASE 46 U/L (12-78); ALBUMIN/GLOBULIN RATIO 0.5 (1.0-2.7); ALKALINE PHOSPHATASE 130 U/L (46-116); ASPARTATE AMINO TRANSFERASE 21 U/L (15-37); BILIRUBIN,TOTAL 0.1 MG/DL (0.2-1.0); BLOOD UREA NITROGEN 22 mg/dL (7-18); CALCIUM 8.2 MG/DL (8.5-10.1); CHLORIDE 100 MMOL/L (98-107); PHOSPHORUS 3.4 MG/DL (2.5-4.9); POTASSIUM 3.9 MMOL/L (3.5-5.1); SODIUM 134 MMOL/L (136-145)
[2018-07-26 07:59] LABS: CARBON DIOXIDE 25 MMOL/L (21-32)
[2018-07-26 08:00] VITALS: BP 137/99
[2018-07-26] MEDS: Hyzaar 12.5mg/50mg tab ORAL SCH (08:56)
[2018-07-26] MEDS ORDERED: Solu-MEDROL 40mg Inj IVP SCH (09:00)
[2018-07-26] MEDS: Heparin 5000 units/ml inj SUBQ SCH (09:00)
[2018-07-26 12:00] VITALS: BP 129/67
--- NOTE | 2018-07-26 12:14 | Infectious Diseases Prog Note ---
Assessment/Plan Assessment/Plan ASSESSMENT: Luekocytosis ( on steroids ) Pneumonia (community-acquired versus pertussis (significant cough, postussive emesis/nausea, sick contact) vs legionella (travel, hyponatremia); fungal and tuberculosis less likely)- fever resolved and patient has significant improved clinically on empiric abx coverage. AFB smear x 3 : Neg ; cx p Neg: HIV ab sc, TB-spot sp cx normal anat -pending MTB PCR, histo, CrAg, Coci, legionella ag urine Fever, Sp Diabetes. Hypertension. PLAN: - on Zithromax and Rocephin, day #03/27 -ok to discharge on PO Azithromcyin and Cefdinir to complete course -Monitor CBC. -Monitor BMP. -Monitor cultures (blood, sputum). -f/u final AFB sp cx -f/u Fungal serology: coccidiomycosis, blastomycosis, and histoplasma urine antigen, Cryptococcus antigen. - f/u Pertussis PCR from nasopharyngeal, Pertussis serology, legionella ag urine. - We will monitor chest x-ray. Discussed with RN and lab staff Subjective Allergies: Coded Allergies: No Known Allergies (Unverified , 07/20/18) Subjective afebrile >72 hs AFB smear neg x3 feeling much better- cough has almost resolved Objective Vital Signs Last 24 Hour Vital Signs Date Time Temp Pulse Resp B/P (MAP) Pulse Ox O2 Delivery O2 Flow Rate FiO2 07/26/18 09:00 Room Air 07/26/18 08:56 139/97 07/26/18 08:00 97.7 99 24 137/99 (112) 97 97.7 07/26/18 07:09 Room Air 21 07/26/18 07:09 93 Nasal Cannula 21 07/26/18 04:00 98.4 81 20 142/102 (115) 94 98.4 07/26/18 00:00 98.4 83 20 128/85 (99) 98 98.4 07/25/18 21:51 149/98 (115) 07/25/18 21:26 163/105 07/25/18 21:00 Room Air 07/25/18 20:30 Nasal Cannula 2.0 28 07/25/18 20:30 95 Nasal Cannula 2.0 28 07/25/18 20:00 97.7 83 20 163/105 (124) 93 97.7 07/25/18 17:01 182/100 07/25/18 16:00 97.7 76 19 182/100 (127) 98 97.7 07/25/18 12:00 97.9 84 18 137/95 (109) 95 97.9 Height (Feet): 5 Height (Inches): 9.00 Weight (Pounds): 238 Objective General Appearance: no apparent distress, alert Lines, tubes and drains: peripheral HEENT: normocephalic, atraumatic, anicteric, mucous membranes moist, PERRL Neck: non-tender, normal alignment, supple, normal inspection Respiratory/Chest: crackles/rales, rhonchi - bilaterally Cardiovascular/Chest: normal peripheral pulses, normal rate, regular rhythm, no JVD Abdomen: normal bowel sounds, non tender, soft, no organomegaly, no mass, abnormal bowel sounds Extremities: normal range of motion, non-tender, normal inspection 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, no motor/sensory deficits, alert, oriented x 3 Microbiology Date/Time Source Procedure Growth Status 07/24/18 06:00 Sputum AFB Specimen Processing Tissue - Final Resulted 07/24/18 06:00 Sputum Acid Fast Bacilli Smear - Final Resulted 07/24/18 06:00 Sputum Acid Fast Bacilli Culture Pending Resulted Laboratory Tests Test 07/25/18 14:15 07/25/18 18:38 07/26/18 05:25 Urine Legionella Antigen Pending Troponin I 0.010 ng/mL (0.000-0.056) Pro-B-Type Natriuretic Peptide 1462 pg/mL (0-125) H White Blood Count 16.9 K/UL (4.8-10.8) H Red Blood Count 4.27 M/UL (4.70-6.10) L Hemoglobin 13.4 G/DL (14.2-18.0) L Hematocrit 37.4 % (42.0-52.0) L Mean Corpuscular Volume 88 FL (80-99) Mean Corpuscular Hemoglobin 31.3 PG (27.0-31.0) H Mean Corpuscular Hemoglobin Concent 35.7 G/DL (32.0-36.0) Red Cell Distribution Width 11.4 % (11.6-14.8) L Platelet Count 471 K/UL (150-450) H Mean Platelet Volume 6.4 FL (6.5-10.1) L Neutrophils (%) (Auto) 65.4 % (45.0-75.0) Lymphocytes (%) (Auto) 24.6 % (20.0-45.0) Monocytes (%) (Auto) 7.8 % (1.0-10.0) Eosinophils (%) (Auto) 1.7 % (0.0-3.0) Basophils (%) (Auto) 0.5 % (0.0-2.0) Erythrocyte Sedimentation Rate 36 MM/HR (0-15) H Sodium Level 134 MMOL/L (136-145) L Potassium Level 3.9 MMOL/L (3.5-5.1) Chloride Level 100 MMOL/L (98-107) Carbon Dioxide Level 25 MMOL/L (21-32) Blood Urea Nitrogen 22 mg/dL (7-18) H Creatinine 1.0 MG/DL (0.55-1.30) Estimat Glomerular Filtration Rate > 60 mL/min (>60) Glucose Level 322 MG/DL (74-106) H Calcium Level 8.2 MG/DL (8.5-10.1) L Phosphorus Level 3.4 MG/DL (2.5-4.9) Magnesium Level 1.6 MG/DL (1.8-2.4) L Total Bilirubin 0.1 MG/DL (0.2-1.0) L Aspartate Amino Transf (AST/SGOT) 21 U/L (15-37) Alanine Aminotransferase (ALT/SGPT) 46 U/L (12-78) Alkaline Phosphatase 130 U/L (46-116) H C-Reactive Protein, Quantitative 2.4 mg/dL (0.00-0.90) H Total Protein 5.7 G/DL (6.4-8.2) L Albumin 2.0 G/DL (3.4-5.0) L Globulin 3.7 g/dL Albumin/Globulin Ratio 0.5 (1.0-2.7) L Current Medications Medications (Trade) Dose Ordered Sig/Josephine Route PRN Reason Start Time Stop Time Status Last Admin Dose Admin Acetaminophen (Tylenol) 650 mg Q4H PRN ORAL Fever/Headache/Mild Pain 07/24/18 19:00 08/19/18 18:59 Azithromycin 500 mg/Sodium Chloride 275 ml @ 275 mls/hr Q24H IV 07/24/18 20:00 07/28/18 19:59 07/25/18 22:23 Ceftriaxone Sodium 1 gm/ Sodium Chloride 55 ml @ 110 mls/hr QHS IV 07/24/18 21:00 07/28/18 20:59 07/25/18 21:20 Clonidine HCl (Catapres tab) 0.1 mg Q4H PRN ORAL For High Blood Pressure 07/24/18 16:15 08/23/18 16:14 07/25/18 21:26 Dextrose (Dextrose 50%) 25 ml Q30M PRN IV Hypoglycemia 07/24/18 18:13 08/23/18 18:12 Dextrose (Dextrose 50%) 50 ml Q30M PRN IV Hypoglycemia 07/24/18 18:13 08/23/18 18:12 HCTZ/Losartan Potassium (Hyzaar 50-12.5) 1 tab DAILY ORAL 07/25/18 09:00 08/24/18 08:59 07/26/18 08:56 Heparin Sodium (Porcine) (Heparin 5000 units/ml) 5,000 units EVERY 12 HOURS SUBQ 07/24/18 21:00 08/20/18 08:59 07/26/18 09:00 Insulin Aspart (NovoLOG) BEFORE MEALS AND HS SUBQ 07/24/18 21:00 08/23/18 20:59 07/26/18 11:47 Methylprednisolone Sodium Succinate (Solu-MEDROL) 40 mg DAILY IVP 07/26/18 09:00 08/22/18 00:00 07/26/18 08:57 Ondansetron HCl (Zofran) 4 mg Q6H PRN IVP Nausea & Vomiting 07/24/18 16:15 08/19/18 16:14 Polyethylene Glycol (Miralax) 17 gm DAILYPRN PRN ORAL Constipation 07/24/18 16:15 08/23/18 16:14 Promethazine HCl/ Codeine (Phenergan with Codeine) 5 ml Q4H PRN ORAL For Cough 07/24/18 16:15 08/20/18 16:14 07/25/18 21:21 Temazepam (Restoril) 15 mg HSPRN PRN ORAL Insomnia 07/24/18 20:00 07/27/18 19:59 07/25/18 21:22 Rocio Wayne M.D. Jul 26, 2018 12:14
--- NOTE | 2018-07-26 13:19 | Cardiology Progress Note ---
Assessment/Plan Status: stable Assessment/Plan Assessment 1. Bilateral pneumonia. 2. Acute pulmonary edema. 3. Diabetes, type 2. 4. Hypertension. Plan Echocardiogram: Left ventricular ejection fraction estimated to be 35 %., PA pressure 50 grade II diastolic dysfunction Losartan - HCTZ 50/12.5 mg Outpatient stress test to evaluate etiology of systolic dysfunction Defer cardiac cath - no chest pain Abx for PNA PPD Steroids being tapered Pulmonary toilet/optimize hygiene/ambulate lasix 20 mg daily to reduce filling pressures and PA pressures dispo planning, ok to d/c home on Po antibiotics Subjective Cardiovascular: Reports: no symptoms Respiratory: Reports: no symptoms Gastrointestinal/Abdominal: Reports: no symptoms Genitourinary: Reports: no symptoms Subjective AFB smear negative, steroids being tapered. WBC elevated (steroids?), CXR Interstitial and alveolar airspace disease bilaterally. Findings are mildly improved Echo Left ventricular ejection fraction estimated to be 35 %., PA pressure 50, grade II diastolic dysfunction, lasix started BNP elevated Patient in no acute distress, on room air. Objective Last 24 Hour Vital Signs Date Time Temp Pulse Resp B/P (MAP) Pulse Ox O2 Delivery O2 Flow Rate FiO2 07/26/18 12:00 98.3 72 22 129/67 (87) 99 98.3 07/26/18 09:00 Room Air 07/26/18 08:56 139/97 07/26/18 08:00 97.7 99 24 137/99 (112) 97 97.7 07/26/18 07:09 Room Air 21 07/26/18 07:09 93 Nasal Cannula 21 07/26/18 04:00 98.4 81 20 142/102 (115) 94 98.4 07/26/18 00:00 98.4 83 20 128/85 (99) 98 98.4 07/25/18 21:51 149/98 (115) 07/25/18 21:26 163/105 07/25/18 21:00 Room Air 07/25/18 20:30 Nasal Cannula 2.0 28 07/25/18 20:30 95 Nasal Cannula 2.0 28 07/25/18 20:00 97.7 83 20 163/105 (124) 93 97.7 07/25/18 17:01 182/100 07/25/18 16:00 97.7 76 19 182/100 (127) 98 97.7 General Appearance: no apparent distress, alert EENT: PERRL/EOMI, normal ENT inspection, TMs normal, pharynx normal Neck: non-tender, normal alignment, supple, normal inspection, no JVD Rhythm: NSR Cardiovascular: normal peripheral pulses, normal rate, regular rhythm Respiratory/Chest: chest wall non-tender, lungs clear, normal breath sounds, no respiratory distress Abdomen: normal bowel sounds, non tender, soft, no organomegaly Extremities: normal range of motion, non-tender, normal inspection, no calf tenderness, no swelling 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, no 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/sensory deficits Intake and Output 07/25/18 07/26/18 19:00 07:00 Intake Total 3100 ml Balance 3100 ml Other 3100 ml # Voids 2 Laboratory Tests Test 07/25/18 14:15 07/25/18 18:38 07/26/18 05:25 Urine Legionella Antigen Pending Troponin I 0.010 ng/mL (0.000-0.056) Pro-B-Type Natriuretic Peptide 1462 pg/mL (0-125) H White Blood Count 16.9 K/UL (4.8-10.8) H Red Blood Count 4.27 M/UL (4.70-6.10) L Hemoglobin 13.4 G/DL (14.2-18.0) L Hematocrit 37.4 % (42.0-52.0) L Mean Corpuscular Volume 88 FL (80-99) Mean Corpuscular Hemoglobin 31.3 PG (27.0-31.0) H Mean Corpuscular Hemoglobin Concent 35.7 G/DL (32.0-36.0) Red Cell Distribution Width 11.4 % (11.6-14.8) L Platelet Count 471 K/UL (150-450) H Mean Platelet Volume 6.4 FL (6.5-10.1) L Neutrophils (%) (Auto) 65.4 % (45.0-75.0) Lymphocytes (%) (Auto) 24.6 % (20.0-45.0) Monocytes (%) (Auto) 7.8 % (1.0-10.0) Eosinophils (%) (Auto) 1.7 % (0.0-3.0) Basophils (%) (Auto) 0.5 % (0.0-2.0) Erythrocyte Sedimentation Rate 36 MM/HR (0-15) H Sodium Level 134 MMOL/L (136-145) L Potassium Level 3.9 MMOL/L (3.5-5.1) Chloride Level 100 MMOL/L (98-107) Carbon Dioxide Level 25 MMOL/L (21-32) Blood Urea Nitrogen 22 mg/dL (7-18) H Creatinine 1.0 MG/DL (0.55-1.30) Estimat Glomerular Filtration Rate > 60 mL/min (>60) Glucose Level 322 MG/DL (74-106) H Calcium Level 8.2 MG/DL (8.5-10.1) L Phosphorus Level 3.4 MG/DL (2.5-4.9) Magnesium Level 1.6 MG/DL (1.8-2.4) L Total Bilirubin 0.1 MG/DL (0.2-1.0) L Aspartate Amino Transf (AST/SGOT) 21 U/L (15-37) Alanine Aminotransferase (ALT/SGPT) 46 U/L (12-78) Alkaline Phosphatase 130 U/L (46-116) H C-Reactive Protein, Quantitative 2.4 mg/dL (0.00-0.90) H Total Protein 5.7 G/DL (6.4-8.2) L Albumin 2.0 G/DL (3.4-5.0) L Globulin 3.7 g/dL Albumin/Globulin Ratio 0.5 (1.0-2.7) L Bordetella pertussis IgG Ab (PT) Pending Microbiology Date/Time Source Procedure Growth Status 07/24/18 06:00 Sputum AFB Specimen Processing Tissue - Final Resulted 07/24/18 06:00 Sputum Acid Fast Bacilli Smear - Final Resulted 07/24/18 06:00 Sputum Acid Fast Bacilli Culture Pending Resulted 07/24/18 05:20 Sputum AFB Specimen Processing Tissue - Final Resulted 07/24/18 05:20 Sputum Acid Fast Bacilli Smear - Final Resulted 07/24/18 05:20 Sputum Acid Fast Bacilli Culture Pending Resulted Ubaldo Dawson MD Jul 26, 2018 13:19
[2018-07-26] MEDS ORDERED: PROMETHAZINE-C118 M1 ORAL (13:37)
[2018-07-26] MEDS ORDERED: HYZAAR 50-12.51 EACH ORAL (13:37)
--- NOTE | 2018-07-26 13:48 | Pulmonology Progress Note ---
Assessment/Plan Problems: (1) Interstitial pneumonia Assessment & Plan: clinically sounds like Pertussis (2) Bilateral pneumonia (3) Respiratory distress (4) Diabetes mellitus type II, uncontrolled Assessment/Plan feeling better, less cough continue Zithromx for atypical pneumonia taper steroids to 40 daily sputum pending HIV was negative cxr showed minimal improvement PPD skin negative Subjective ROS Limited/Unobtainable: No Constitutional: Reports: no symptoms HEENT: Repors: no symptoms Respiratory: Reports: no symptoms Allergies: Coded Allergies: No Known Allergies (Unverified , 07/20/18) Objective Last 24 Hour Vital Signs Date Time Temp Pulse Resp B/P (MAP) Pulse Ox O2 Delivery O2 Flow Rate FiO2 07/26/18 12:00 98.3 72 22 129/67 (87) 99 98.3 07/26/18 09:00 Room Air 07/26/18 08:56 139/97 07/26/18 08:00 97.7 99 24 137/99 (112) 97 97.7 07/26/18 07:09 Room Air 21 07/26/18 07:09 93 Nasal Cannula 21 07/26/18 04:00 98.4 81 20 142/102 (115) 94 98.4 07/26/18 00:00 98.4 83 20 128/85 (99) 98 98.4 07/25/18 21:51 149/98 (115) 07/25/18 21:26 163/105 07/25/18 21:00 Room Air 07/25/18 20:30 Nasal Cannula 2.0 28 07/25/18 20:30 95 Nasal Cannula 2.0 28 07/25/18 20:00 97.7 83 20 163/105 (124) 93 97.7 07/25/18 17:01 182/100 07/25/18 16:00 97.7 76 19 182/100 (127) 98 97.7 Intake and Output 07/25/18 07/26/18 19:00 07:00 Intake Total 3100 ml Balance 3100 ml Other 3100 ml # Voids 2 General Appearance: WD/WN HEENT: normocephalic, anicteric Respiratory/Chest: chest wall non-tender, lungs clear, chest wall tender Cardiovascular: normal peripheral pulses, normal rate Abdomen: normal bowel sounds, soft, non tender, no scars Extremities: no clubbing Skin: no rash Microbiology Date/Time Source Procedure Growth Status 07/24/18 06:00 Sputum AFB Specimen Processing Tissue - Final Resulted 07/24/18 06:00 Sputum Acid Fast Bacilli Smear - Final Resulted 07/24/18 06:00 Sputum Acid Fast Bacilli Culture Pending Resulted 07/24/18 05:20 Sputum AFB Specimen Processing Tissue - Final Resulted 07/24/18 05:20 Sputum Acid Fast Bacilli Smear - Final Resulted 07/24/18 05:20 Sputum Acid Fast Bacilli Culture Pending Resulted Laboratory Tests 07/25/18 14:15: Urine Legionella Antigen [Pending] 07/25/18 18:38: Troponin I 0.010, Pro-B-Type Natriuretic Peptide 1462H 07/26/18 05:25: White Blood Count 16.9H, Red Blood Count 4.27L, Hemoglobin 13.4L, Hematocrit 37.4L, Mean Corpuscular Volume 88, Mean Corpuscular Hemoglobin 31.3H, Mean Corpuscular Hemoglobin Concent 35.7, Red Cell Distribution Width 11.4L, Platelet Count 471H, Mean Platelet Volume 6.4L, Neutrophils (%) (Auto) 65.4, Lymphocytes (%) (Auto) 24.6, Monocytes (%) (Auto) 7.8, Eosinophils (%) (Auto) 1.7, Basophils (%) (Auto) 0.5, Erythrocyte Sedimentation Rate 36H, Sodium Level 134L, Potassium Level 3.9, Chloride Level 100, Carbon Dioxide Level 25, Blood Urea Nitrogen 22H, Creatinine 1.0, Estimat Glomerular Filtration Rate > 60, Glucose Level 322H, Calcium Level 8.2L, Phosphorus Level 3.4, Magnesium Level 1.6L, Total Bilirubin 0.1L, Aspartate Amino Transf (AST/SGOT) 21, Alanine Aminotransferase (ALT/SGPT) 46, Alkaline Phosphatase 130H, C-Reactive Protein, Quantitative 2.4H, Total Protein 5.7L, Albumin 2.0L, Globulin 3.7, Albumin/ Globulin Ratio 0.5L, Bordetella pertussis IgG Ab (PT) [Pending] Current Medications Medications (Trade) Dose Ordered Sig/Josephine Route PRN Reason Start Time Stop Time Status Last Admin Dose Admin Acetaminophen (Tylenol) 650 mg Q4H PRN ORAL Fever/Headache/Mild Pain 07/24/18 19:00 08/19/18 18:59 Azithromycin 500 mg/Sodium Chloride 275 ml @ 275 mls/hr Q24H IV 07/24/18 20:00 07/28/18 19:59 07/25/18 22:23 Ceftriaxone Sodium 1 gm/ Sodium Chloride 55 ml @ 110 mls/hr QHS IV 07/24/18 21:00 07/28/18 20:59 07/25/18 21:20 Clonidine HCl (Catapres tab) 0.1 mg Q4H PRN ORAL For High Blood Pressure 07/24/18 16:15 08/23/18 16:14 07/25/18 21:26 Dextrose (Dextrose 50%) 25 ml Q30M PRN IV Hypoglycemia 07/24/18 18:13 08/23/18 18:12 Dextrose (Dextrose 50%) 50 ml Q30M PRN IV Hypoglycemia 07/24/18 18:13 08/23/18 18:12 HCTZ/Losartan Potassium (Hyzaar 50-12.5) 1 tab DAILY ORAL 07/25/18 09:00 08/24/18 08:59 07/26/18 08:56 Heparin Sodium (Porcine) (Heparin 5000 units/ml) 5,000 units EVERY 12 HOURS SUBQ 07/24/18 21:00 08/20/18 08:59 07/26/18 09:00 Insulin Aspart (NovoLOG) BEFORE MEALS AND HS SUBQ 07/24/18 21:00 08/23/18 20:59 07/26/18 11:47 Methylprednisolone Sodium Succinate (Solu-MEDROL) 40 mg DAILY IVP 07/26/18 09:00 08/22/18 00:00 07/26/18 08:57 Ondansetron HCl (Zofran) 4 mg Q6H PRN IVP Nausea & Vomiting 07/24/18 16:15 08/19/18 16:14 Polyethylene Glycol (Miralax) 17 gm DAILYPRN PRN ORAL Constipation 07/24/18 16:15 08/23/18 16:14 Promethazine HCl/ Codeine (Phenergan with Codeine) 5 ml Q4H PRN ORAL For Cough 07/24/18 16:15 08/20/18 16:14 07/25/18 21:21 Temazepam (Restoril) 15 mg HSPRN PRN ORAL Insomnia 07/24/18 20:00 07/27/18 19:59 07/25/18 21:22 Pamela Underwood MD Jul 26, 2018 13:48
[2018-07-26 16:00] VITALS: BP 144/98
[2018-07-26] MEDS ORDERED: Influenza Vaccine Quadrivalent 0.5ml IM ONE (18:00)
[2018-07-26] MEDS ORDERED: Pneumococcal Vaccine 25mcg/0.5ml IM ONE (18:00)
--- NOTE | 2018-07-27 15:07 | Diagnostic Imaging Report ---
APPROVED REPORT CPT Code: 69008 Present Symptoms Shortness of breath BILATERAL: Imaging reveals a patent deep venous system bilaterally. There is no evidence of thrombus within the femoral, popliteal or tibial segments. The greater saphenous veins are also within normal limits. Doppler indicates normal spontaneous flow within these segments.
--- NOTE | 2018-07-29 11:02 | Discharge Summary ---
Discharge Summary Discharge Summary _ DATE OF ADMISSION: 07/20/2018 DATE OF DISCHARGE: 07/26/2018 REASON FOR ADMISSION: 47 years old male with past medical history of diabetes mellitus and hypertension, presented to ED with complaint of cough for 3-4 days. Patient was using cough syrup without improvement. Patient noted swollen legs. Patient reported orthopnea and dyspnea on exertion. No chest pain. He denied fevers, chills, nausea ,vomiting ,diarrhea. Upon evaluation low-grade fever 99.5, tachycardic 118, tachypneic 26, elevated blood pressure - 151/101. Patient also noted to be to hypoxic , saturating only 87% on room air. Laboratory workup revealed no leukocytosis ,stable hemoglobin and hematocrit . Glucose 313. Anion gap and bicarbonate within normal limits. Troponin 0.041. Pro BNP 1136. Lactic acid 1.3. Urinalysis with+4 glucose, + 4 protein, +2 ketones, BUT no evidence of UTI. ABG on 3 L oxygen via nasal cannula revealed hypoxemia with the PaO2 of 57 and O2 sat 90% . EKG revealed sinus tachycardia ,no acute ischemic changes. Chest x-ray revealed bilateral extensive airspace opacities, consistent with noncardiogenic pulmonary edema versus inflammatory/infectious infiltrate . Patient admitted with diagnoses of acute respiratory distress , acute pulmonary edema, probably pneumonia, hypertensive urgency, diabetes mellitus type 2 uncontrolled . CONSULTANTS: thoroughbred horse farm manager dr. Dawson pulmonary Dr. Underwood ID specialist Dr. Paul [facility]: Patient admitted to monitored floor. Serial troponin times 4 were negative. EKG revealed no acute ischemic changes . Patient was ruled out for acute HI. Venous duplex bilateral lower extremities revealed no evidence of acute DVT. Regulatory Intern closely followed. Echocardiogram revealed ejection fraction of 35% with global left ventricular hypokinesis. Grade 2 diastolic dysfunction and right ventricular systolic pressure of 55 , consistent with moderate pulmonary hypertension. Anti-failure medication regimen was optimized as per thoroughbred horse farm manager with beta Ling, ARB and diuretic . Patient initially started on intensive diuresis with IV Lasix. Volumes and renal parameters were closely monitored. Electrolytes corrected as needed. Regulatory Intern recommended outpatient stress test to evaluate etiology of systolic dysfunction. Regulatory Intern deferred cardiac catheterization at this time since patient was asymptomatic. After patient showed symptomatic improvement, Lasix was changed to maintenance dose to reduce filling pressures and pulmonary artery pressure. Blood rpessure was managed with beta ling, combination of ARB/ hydrochlorothiazide and Lasix. Blood pressure eventually stabilized. Supplemental oxygen provided as needed to keep pulse oximetry above 92%. Pulmonary toilet provided as needed. Patient started on steroids with graduals tapering down. Antitussive provided as needed for symptomatic relief. Patient was on empiric antibiotics. Infectious disease specialist closely followed. CT chest revealed bilateral central airspace consolidations, moderate to severe in degree. Normal heart size. Findings were suggestive of acute pulmonary edema with favoring of noncardiogenic causes. Sputum smear AFB 3 were negative. Sputum culture was negative. HIV test was negative. PPD was negative. TB spot negative. Urine Legionella antigen was negative. Serology for Cryptococci , histoplasma , pertussis all negative . Cryptococcus serology still pending. MTB by PCR pending . Patient was on antibiotics as per ID specialist recommendations. Patient was discharged on oral azithromycin and Cefdinir to complete the course. Prior to discharge patient received Pneumovax and flu vaccine . Blood sugar was managed with sliding scale of insulin. Blood sugar improved but remained elevated, probably due to steroids. Patient o will need further optimization of anti-glycemic regimen as outpatient by close follow-up with his primary care provider. Patient was stabilized and ready for discharge home, FINAL DIAGNOSES: Acute pulmonary edema Bilateral interstitial pneumonia Hypertensive urgency -resolved Diabetes mellitus type 2, out of control Cardiomyopathy Moderate pulmonary hypertension DISCHARGE MEDICATIONS: See Medication Reconciliation list. DISCHARGE INSTRUCTIONS: Patient was discharged home Follow up with primary care provider in one week. I have been assigned to dictate discharge summary for this account. I was not involved in the patient's management. Maggie Allison NP Jul 29, 2018 11:02
== END 2018-07-26 17:56 | disposition home or self-care (01) | DRG 196 ==
LOC: EMR 18:42 → EDBEDREQ 19:08 → EDBEDREQTM 19:08 → EDBEDREQSVC 19:08 → 2W 20:02 → EDBEDREQ 20:31 → 2W 21:22 → 2E 07-21 14:29 → 4E 07-24 15:45
DX: J84.9 Interstitial pulmonary disease, unspecified (principal); J81.0 Acute pulmonary edema; I42.9 Cardiomyopathy, unspecified; E11.9 Type 2 diabetes mellitus without complications; I16.0 Hypertensive urgency; I10 Essential (primary) hypertension; R06.03 Acute respiratory distress; Z23 Encounter for immunization; R09.02 Hypoxemia; E11.65 Type 2 diabetes mellitus with hyperglycemia; I27.20 Pulmonary hypertension, unspecified
CPT/HCPCS: 36415; 36600; 71045; 71260; 80048; 80053; 80069; 81003; 82164; 82378; 82550; 82553; 82803; 82962; 83605; 83615; 83735; 83880; 84100; 84484; 85007; 85025; 85651; 86140; 86171; 86580; 86612; 86635; 86703; 87040; 87070; 87116; 87205; 87449; 87556; 90686; 90732; 93005; 93306; 93970; 94640; 94664; 94760; 96374; 96376; 99291; J1815; J7620